=== PATIENT | male | born 1985 | race Caucasian/White ===

== ENCOUNTER → 2016-08-19 | Outpatient (CLI) | payer OTHER ==
[~2016-08-19] MED LIST: ALPR2TAB3 PO; CARI350T20 PO; DIAZ2TAB PO; No home medications; OXCA300T PO; PAME25CA PO; TRAM50TA2 PO; VENL150C43 PO; VENL37CA PO
--- NOTE | 2016-08-19 23:57 | ECWPNPC ---
PATIENT NAME: HEENA KO : 1985 GENDER: MALE VISIT DATE: 08/19/2016 DISCHARGE DATE: 08/19/16 0952 VISIT LOCKED DATE TIME: PHYSICIAN: TIMA ALICIA RESOURCE: TIMA ALICIA REASON FOR APPOINTMENT 1. ABDOMINAL PAIN HISTORY OF PRESENT ILLNESS HISTORY OF PRESENT ILLNESS: PAIN THE PATIENT DESCRIBES THE PAIN... FALL RISK SCREENING: SCREENING :NO FALLS IN THE PAST YEAR TODAY'S VISIT: NOTES: STATUS POST PERMANENT DORSAL COLUMN STIMULATOR FOR PERSISTANT ABDOMENAL /BLADDER AREA PAIN. PLACED 07/13/16. RATES PAIN TODAY 8/10 PARTICULARLY OVER THE SPINE AND ALONG THE STIMULATOR INSERTION SITE DENIES ANY NEW FEVERS OR CHILLS. . IS HAVING DIFFICULTY WITH RIDING IN THE CAR BUT OTHERWISE NO ISSUES WITH THE STIMULATOR. . NOTES GOOD STIIMULATOR COVERAGE FROM MID THORACIC REGION ALL THE WAY TO THE MID THIGH. IS WORKING ON DECREASING PAIN MEDS. WILL BE FOLLOWING UP WITH UROLOGIST AT [facility] IN NEAR FUTURE.. IS WORKING ON BUILDING LOWER EXTREMITY STRENGTH. WILL BE FOLLOWING UP WITH PARTS DEPARTMENT MANAGER. REPORTS HE HIS HUNGRY, FOOD TASTES BETTER AND HE HAS GAINED 10 LBS OVER THE LAST MONTH. CURRENT MEDICATIONS TAKING OXYCODONE-ACETAMINOPHEN 10-325 MG TABLET 1 TABLET NEEDED ORALLY Q6H PRN PAIN MDD4 TAKING SOMA 350 MG TABLET 1 TABLET ORALLY TAKE ONE AT SUPPER TIME AND ONE AT BEDTIME PRN FOR SPASMS AND PAIN MDD=2 TAKING NORTRIPTYLINE HCL 25 MG CAPSULE 1 CAPSULE ORALLY TWICE A DAY TAKING HYDROCODONE-ACETAMINOPHEN 7.5-325 MG TABLET 1 TABLET NEEDED ORALLY EVERY 4 HRS PRN FOR PAIN MDD5 TAKING STOOL SOFTENER 100 MG CAPSULE 1 CAPSULE NEEDED ORALLY BID TAKING VENLAFAXINE HCL 100 MG TABLET 1 AND HALF TAB FOOD ORALLY QD TAKING XANAX 2 MG TABLET 1 TABLET ORALLY TID TAKING OXCARBAZEPINE 300 MG TABLET 1 TAB(S) ORALLY BID TAKING OXYCODONE HCL 10 MG TABLET 1 TABLET ORALLY EVERY 4 HRS PRN FOR PAIN MDD5 TAKING VENLAFAXINE HCL 37.5 MG TABLET 1 TABLET WITH FOOD ORALLY DAILY TAKING VALIUM 2 MG TABLET 1 TABLET NEEDED ORALLY QID NOT-TAKING LINZESS 145 MCG CAPSULE 1 CAPSULE ORALLY ONCE A DAY NOT-TAKING VALIUM 2 MG TABLET 1 TABLET NEEDED ORALLY ONCE A DAY NOT-TAKING NICODERM CQ 14 MG/24HR PATCH 24 HOUR 1 PATCH TO SKIN TRANSDERMAL ONCE A DAY PAST MEDICAL HISTORY PROSTATE ENLARGEMENT,CHRONIC KIDNEY INFECTION, ALLERGIES N.K.D.A. SOCIAL HISTORY TOBACCO USE ARE YOU A:CURRENT SMOKER LEARNING BARRIERS / SPECIAL NEEDS ORIENTED TO PLAN OF CARE: PATIENT, PAIN MANAGEMENT PATIENT, ORIENTED TO PLAN OF CARE: PATIENT, PAIN MANAGEMENT PATIENT. NEW PATIENT PAIN DIARY TODAY'S VISITNOTES FROM 0-10, WHAT LEVEL IS YOUR PAIN TODAY?0 PAIN CLINIC PFS, CLERGY, PUBLIC HEALTH REFERRALS PFS REFERRAL NEEDED?NO CLERGY REFERRAL NEEDED?NO PUBLIC HEALTH REFERRAL NEEDED?NO WAS THE PROVIDER NOTIFIED OF ANY PERTINENT INFO?NO PFS REFERRAL NEEDED?NO CLERGY REFERRAL NEEDED?NO PUBLIC HEALTH REFERRAL NEEDED?NO WAS THE PROVIDER NOTIFIED OF ANY PERTINENT INFO?NO REVIEW OF SYSTEMS CONSTITUTIONAL: ANY CHANGE IN YOUR MEDICAL CONDITION? NO . CHILLS NO . FEVER NO . INFECTION: DO YOU HAVE NEW INFECTIONS? NO . DO YOU HAVE HISTORY OF MRSA? NO . MUSCULOSKELETAL: ANY NEW PATTERNS OF PAIN OR NUMBNESS? NO . GASTROENTEROLOGY: ANY NEW CHANGE IN BOWEL CONTROL? NO . GENITOURINARY: ANY NEW CHANGE IN BLADDER CONTROL? NO - HAS PPERM CATH . IS THERE A CHANCE YOU COULD BE ? NO . HEMATOLOGY/LYMPH: DO YOU TAKE ANY BLOOD THINNERS? (FOR EXAMPLE- COUMADIN, PLAVIX, AGGRENOX, PLATEL, PRADAXA, OR XARELTO) NO . WHEN WAS YOUR LAST DOSE? DATE: TIME: . NEUROLOGY: HAVE YOU FALLEN IN THE PAST 6 MONTHS? NO . ANY NEW EXTREMITY NUMBNESS OR WEAKNESS? NO . CARDIOLOGY: DO YOU HAVE A PACEMAKER OR DEFIBRILLATOR? NO . RESPIRATORY: HAVE YOU BEEN SICK IN THE PAST WEEK? NO . FEVER NO . FLU LIKE SYMPTOMS? NO . COUGH NO . INTEGUMENTARY: DO YOU HAVE ANY RASHES OR OPEN SORES? NO . ALLERGIC/IMMUNO: ARE YOU ALLERGIC TO SHELLFISH OR IV DYE? NO . ANY NEW ALLERGIES? NO . PSYCHIATRIC: DO YOU HAVE THOUGHTS OF HURTING YOURSELF OR SOMEONE ELSE? NO . ARE YOU ABUSED, NEGLECTED, OR IN AN UNSAFE ENVIRONMENT? NO . ENDOCRINOLOGY: ARE YOU DIABETIC? NO . OTHER: DO YOU NEED ANY PRESCRIPTIONS? NO . IF YES, PLEASE LIST: ____ . ANY NEW PROBLEMS WITH YOUR MEDICATIONS? NO . WHEN DID YOU LAST EAT? ____ . WHEN DID YOU LAST DRINK? ____ . WHAT DID YOU LAST DRINK? ____ . NAME OF PERSON DRIVING YOU HOME? ____ . DO YOU HAVE ANY OTHER QUESTIONS OR CONCERNS NO . UROLOGY: GENERAL CONTINES TO HAVE FLANK DISCONFORT FROM DISTENDED KIDNEY AND HAS HX OF KIDNEY STONES . REVIEWED BY: PROVIDER: TIMA CEDILLO . VITAL SIGNS WT 136 LBS, HT 68 IN, BMI 20.68 INDEX, BP 121/73 MM HG, HR 98 /MIN, RR 18 /MIN, TEMP 98 F,2 F, OXYGEN SAT % 100, SAFE IN ENV? (Y/N) YES, REVIEWED BY: KG. EXAMINATION GENERAL EXAMINATION: PSYCH ALERT , ORIENTED X 3 , APPROPRIATE MOOD AND AFFECT , TALKATIVE AND CHEERFUL. LUNGS:CLEAR TO AUSCULTATION BILATERALLY - ABLE TO TAKE DEEP BREATH. NO WHEEZES, RALES OR RHONCHI. HEART:HEART RATE REGULAR. ABDOMEN:ILIOSTOMY RIGHT LOWER QUADRANT. STOMA PINK. URIN CLOUDY. BOWEL SOUND ACTIVE. MINIMAL TENDERNESS OVER LOWER ABDOMEN/SYMPHASIS PUBIS. MUSCULOSKELETAL:TENDER OVER LSA., TRIGGER POINTS:, ELICITED WITH PALPATION OVER LUMBAR PARAVERTEBRAL MUSCLES AND INTO THE SECRUM. RESTRICTION OF ROM IN THIS AREA. INSPECTION OF SURGICAL AREA OVER SPINE AND RIGHT FLANK - INCISIONS CLEAN, PINK, WELL APPROXIMATED. NO ERRYTHEMA, NO DRAINAGE. MUSCLE SPASM PALPATED AROUND DCS GENERATOR RIGHT FLANK. RISES EASILY TO STANDING POSITION. POSTURE STOOPED. USING WALKER FOR BALANCE.. ASSESSMENTS ABDOMINAL PAIN - R10.9 (PRIMARY) NEUROGENIC BLADDER - N31.9 TREATMENT ABDOMINAL PAIN STOP OXYCODONE-ACETAMINOPHEN TABLET, 10-325 MG, 1 TABLET NEEDED, ORALLY, Q6H PRN PAIN MDD4 START PERCOCET TABLET, 7.5-325 MG, 1 TABLET NEEDED, ORALLY, EVERY 6 HRS PRN PAIN MDD=3, 30 DAY(S), 90, REFILLS 0 START LIDOCAINE-PRILOCAINE CREAM, 2.5-2.5 %, DIRECTED, EXTERNALLY, APPLY TO PAIN AREAS OF LOW BACK NEAR INCISIONS Q 6 HRS PRN, 30 DAY(S), 3 TUBE, REFILLS 1 NOTES: KEEP WALKING, BUT PACE SELF.WORK TO DECREASE QUANTITY OF PAIN MED PER DAY. WILL CONTINUE WEAN AT NEXT VISIT. WILL CONTACT [employer] AND HAVE REP COME TO CHECK DCS PROGRAMMING AT NEXT VISIT. PROCEDURE CODES FA211 ESTABILISHED PATIENT [facility] CHARGE FOLLOW UP 3-4 WEEKS ELECTRONICALLY SIGNED BY IDA PARRA ON 08/19/2016 AT 11:48 AM EST DISCLAIMER : THIS IS A VISIT SUMMARY EXTRACTED FROM THE [employer] CHART. IT IS NOT A COPY OF THE [employer] PROGRESS NOTE. KEMI
== END ==
LOC: M PAIN 09:20
PROVIDERS: ATTEND Nurse Practitioner Family
DX: Z09 Encounter for follow-up examination after completed treatment for conditions other than malignant neoplasm (principal); R10.9 Unspecified abdominal pain; N31.9 Neuromuscular dysfunction of bladder, unspecified; N28.9 Disorder of kidney and ureter, unspecified; F17.200 Nicotine dependence, unspecified, uncomplicated; Z79.891 Long term (current) use of opiate analgesic; Z79.899 Other long term (current) drug therapy; Z98.890 Other specified postprocedural states; Z96.9 Presence of functional implant, unspecified

== ENCOUNTER → 2016-09-15 | Outpatient (CLI) | payer OTHER ==
--- NOTE | 2016-10-01 01:49 | ECWPNPC ---
PATIENT NAME: HEENA KO : 1985 GENDER: MALE VISIT DATE: 09/15/2016 DISCHARGE DATE: 09/15/16 0955 VISIT LOCKED DATE TIME: PHYSICIAN: TIMA ALICIA RESOURCE: TIMA ALICIA REASON FOR APPOINTMENT 1. ABDOMINAL PAIN HISTORY OF PRESENT ILLNESS HISTORY OF PRESENT ILLNESS: PAIN THE PATIENT DESCRIBES THE PAIN... FALL RISK SCREENING: SCREENING :NO FALLS IN THE PAST YEAR TODAY'S VISIT: NOTES: RATES PAIN TODAY 8/10 AND MOST OF PAIN IS IN BACK. NOTES GOOD STIMULATION FROM DORSAL COLUMN STIMULATOR TO BLADDER AND ABDOMINAL AREA. NO CHANGE TO THE BACK PAIN WHEN STIM IS TURNED OFF. HAS BEEN ABLE TO WALK BETTER BUT CAN NOT SLEEP DUE TO BACK AREA PAIN.. CURRENT MEDICATIONS TAKING SOMA 350 MG TABLET 1 TABLET ORALLY TAKE ONE AT SUPPER TIME AND ONE AT BEDTIME PRN FOR SPASMS AND PAIN MDD=2 TAKING NORTRIPTYLINE HCL 25 MG CAPSULE 1 CAPSULE ORALLY TWICE A DAY TAKING HYDROCODONE-ACETAMINOPHEN 7.5-325 MG TABLET 1 TABLET NEEDED ORALLY EVERY 4 HRS PRN FOR PAIN MDD5 TAKING STOOL SOFTENER 100 MG CAPSULE 1 CAPSULE NEEDED ORALLY BID TAKING VENLAFAXINE HCL 100 MG TABLET 1 AND HALF TAB FOOD ORALLY QD TAKING XANAX 2 MG TABLET 1 TABLET ORALLY TID TAKING OXCARBAZEPINE 300 MG TABLET 1 TAB(S) ORALLY BID TAKING OXYCODONE HCL 10 MG TABLET 1 TABLET ORALLY EVERY 4 HRS PRN FOR PAIN MDD5 TAKING VENLAFAXINE HCL 37.5 MG TABLET 1 TABLET WITH FOOD ORALLY DAILY TAKING VALIUM 2 MG TABLET 1 TABLET NEEDED ORALLY QID TAKING PERCOCET 7.5-325 MG TABLET 1 TABLET NEEDED ORALLY EVERY 6 HRS PRN PAIN MDD=3 TAKING LIDOCAINE-PRILOCAINE 2.5-2.5 % CREAM DIRECTED EXTERNALLY APPLY TO PAIN AREAS OF LOW BACK NEAR INCISIONS Q 6 HRS PRN NOT-TAKING LINZESS 145 MCG CAPSULE 1 CAPSULE ORALLY ONCE A DAY NOT-TAKING VALIUM 2 MG TABLET 1 TABLET NEEDED ORALLY ONCE A DAY NOT-TAKING NICODERM CQ 14 MG/24HR PATCH 24 HOUR 1 PATCH TO SKIN TRANSDERMAL ONCE A DAY MEDICATION LIST REVIEWED AND RECONCILED WITH THE PATIENT PAST MEDICAL HISTORY PROSTATE ENLARGEMENT,CHRONIC KIDNEY INFECTION, ALLERGIES N.K.D.A. SOCIAL HISTORY GENERAL: TOBACCO USE ARE YOU A:NONSMOKER LEARNING BARRIERS / SPECIAL NEEDS ORIENTED TO PLAN OF CARE: PATIENT, PAIN MANAGEMENT PATIENT, ORIENTED TO PLAN OF CARE: PATIENT, PAIN MANAGEMENT PATIENT. NEW PATIENT PAIN DIARY TODAY'S VISITNOTES FROM 0-10, WHAT LEVEL IS YOUR PAIN TODAY?0 PAIN CLINIC PFS, CLERGY, PUBLIC HEALTH REFERRALS PFS REFERRAL NEEDED?NO CLERGY REFERRAL NEEDED?NO PUBLIC HEALTH REFERRAL NEEDED?NO WAS THE PROVIDER NOTIFIED OF ANY PERTINENT INFO?NO PFS REFERRAL NEEDED?NO CLERGY REFERRAL NEEDED?NO PUBLIC HEALTH REFERRAL NEEDED?NO WAS THE PROVIDER NOTIFIED OF ANY PERTINENT INFO?NO REVIEW OF SYSTEMS CONSTITUTIONAL: ANY CHANGE IN YOUR MEDICAL CONDITION? NO . CHILLS NO . FEVER NO . INFECTION: DO YOU HAVE NEW INFECTIONS? NO . DO YOU HAVE HISTORY OF MRSA? NO . MUSCULOSKELETAL: ANY NEW PATTERNS OF PAIN OR NUMBNESS? NO . GASTROENTEROLOGY: ANY NEW CHANGE IN BOWEL CONTROL? NO . APPETITE CHANGE IMPROVING. DENIES DIARRHEA/CONSTPATION . GENITOURINARY: ANY NEW CHANGE IN BLADDER CONTROL? NO . IS THERE A CHANCE YOU COULD BE ? NO . HEMATOLOGY/LYMPH: DO YOU TAKE ANY BLOOD THINNERS? (FOR EXAMPLE- COUMADIN, PLAVIX, AGGRENOX, PLATEL, PRADAXA, OR XARELTO) NO . WHEN WAS YOUR LAST DOSE? DATE: TIME: . NEUROLOGY: HAVE YOU FALLEN IN THE PAST 6 MONTHS? YES, BEFORE 07/13 NO INJURY . ANY NEW EXTREMITY NUMBNESS OR WEAKNESS? NO . CARDIOLOGY: DO YOU HAVE A PACEMAKER OR DEFIBRILLATOR? NO . RESPIRATORY: HAVE YOU BEEN SICK IN THE PAST WEEK? NO . FEVER NO . FLU LIKE SYMPTOMS? NO . COUGH NO . INTEGUMENTARY: DO YOU HAVE ANY RASHES OR OPEN SORES? NO . ALLERGIC/IMMUNO: ARE YOU ALLERGIC TO SHELLFISH OR IV DYE? NO . ANY NEW ALLERGIES? NO . PSYCHIATRIC: DO YOU HAVE THOUGHTS OF HURTING YOURSELF OR SOMEONE ELSE? NO . ARE YOU ABUSED, NEGLECTED, OR IN AN UNSAFE ENVIRONMENT? NO . ENDOCRINOLOGY: ARE YOU DIABETIC? NO . OTHER: DO YOU NEED ANY PRESCRIPTIONS? NO . IF YES, PLEASE LIST: ____ . ANY NEW PROBLEMS WITH YOUR MEDICATIONS? NO . WHEN DID YOU LAST EAT? ____ . WHEN DID YOU LAST DRINK? ____ . WHAT DID YOU LAST DRINK? ____ . NAME OF PERSON DRIVING YOU HOME? ____ . DO YOU HAVE ANY OTHER QUESTIONS OR CONCERNS FEELS LIKE THE DCS IS STICKING OUT OF HIS BACK. HE CAN NOT LIE ON HIS BACK AT NIGHT TO SLEEP DUE TO THE PAIN. LEADS ARE PROMINENT BOTH SIDE OF BACK AND ARE TENDER TO THE TOUCH. . UROLOGY: GENERAL URETER OSTOMY IN PLACE URINE CLEAR YELLOW IN COLOR . REVIEWED BY: PROVIDER: TIMA CEDILLO . VITAL SIGNS WT 129.2 LBS, HT 68 IN, BMI 19.64 INDEX, BP 130/82 MM HG, HR 93 /MIN, RR 16 /MIN, TEMP 97.3 F, OXYGEN SAT % 99, NA INITIALS TL 0849, REVIEWED BY: ADPT WEIGHED ON SCALE-TL. EXAMINATION GENERAL EXAMINATION: PSYCHALERT , ORIENTED X 3 , APPROPRIATE MOOD AND AFFECT , SMILING. LUNGS:CLEAR TO AUSCULTATION BILATERALLY. HEART:HEART RATE REGULAR. MUSCULOSKELETAL:HYPERSENSATIVE TO LIGHT TOUCH OVER ENTIRE BACK SKIN SURFACE. WELL HEALED SURGICAL INSIONS. NO ERYTHEMA NO OPEN LESIONS. ASSESSMENTS ABDOMINAL PAIN - R10.9 (PRIMARY) NEUROGENIC BLADDER - N31.9 CHRONICALLY ON OPIATE THERAPY - Z79.891 TREATMENT ABDOMINAL PAIN STOP SOMA TABLET, 350 MG, 1 TABLET, ORALLY, TAKE ONE AT SUPPER TIME AND ONE AT BEDTIME PRN FOR SPASMS AND PAIN MDD=2 STOP HYDROCODONE-ACETAMINOPHEN TABLET, 7.5-325 MG, 1 TABLET NEEDED, ORALLY, EVERY 4 HRS PRN FOR PAIN MDD5 STOP OXYCODONE HCL TABLET, 10 MG, 1 TABLET, ORALLY, EVERY 4 HRS PRN FOR PAIN MDD5 STOP PERCOCET TABLET, 7.5-325 MG, 1 TABLET NEEDED, ORALLY, EVERY 6 HRS PRN PAIN MDD=3 START TIZANIDINE HCL TABLET, 2 MG, 1 TABLET NEEDED, ORALLY, THREE TIMES A DAY, 30 DAY(S), 90 TABLET, REFILLS 1 START PERCOCET TABLET, 10-325 MG, 1 TABLET NEEDED, ORALLY, EVERY 6-8 HRS PRN PAIN MDD=3, 30 DAY(S), 90, REFILLS 0 NOTES: CONTINUE LIDOCAINE CREAM NEEDED TO BACK. BRING MEDS TO NEXT VISIT. DISCUSSED WITH PATIENT THAT WE WILL NOT BE USING THE NARCOTICS LONG-TERM. CLINICAL NOTES: ISTOP REGISTRY REVIEWED AND DEMNOSTRATES COMPLLIANCE. . RECENT URINE TOXICOLOGY REVIEWED. NO UNAUTHORIZED MEDICATIONS. NO ILLICIT SUBSTANCES AND PRESCRIBED MEDICATIONS WERE PRESENT. PROCEDURE CODES FA211 ESTABILISHED PATIENT [facility] CHARGE DISPOSITION & COMMUNICATION FOLLOW UP 2 WEEKS ELECTRONICALLY SIGNED BY IDA PARRA ON 09/30/2016 AT 01:25 PM EST DISCLAIMER : THIS IS A VISIT SUMMARY EXTRACTED FROM THE [employer] CHART. IT IS NOT A COPY OF THE [employer] PROGRESS NOTE. KEMI
== END ==
LOC: M PAIN 08:40
PROVIDERS: ATTEND Nurse Practitioner Family
DX: Z09 Encounter for follow-up examination after completed treatment for conditions other than malignant neoplasm (principal); G89.29 Other chronic pain; R10.9 Unspecified abdominal pain; N31.9 Neuromuscular dysfunction of bladder, unspecified; M96.1 Postlaminectomy syndrome, not elsewhere classified; Z79.891 Long term (current) use of opiate analgesic; Z79.899 Other long term (current) drug therapy

== ENCOUNTER → 2016-10-16 | Outpatient (CLI) | payer OTHER ==
--- NOTE | 2016-10-24 00:12 | ECWPNPC ---
PATIENT NAME: HEENA KO : 1985 GENDER: MALE VISIT DATE: 10/16/2016 DISCHARGE DATE: 10/16/16 1315 VISIT LOCKED DATE TIME: PHYSICIAN: TIMA ALICIA RESOURCE: TIMA ALICIA REASON FOR APPOINTMENT 1. ABDOMINAL PAIN HISTORY OF PRESENT ILLNESS HISTORY OF PRESENT ILLNESS: PAIN THE PATIENT DESCRIBES THE PAIN... FALL RISK SCREENING: SCREENING :NO FALLS IN THE PAST YEAR TODAY'S VISIT: NOTES: RATES PAIN TODAY 10. IS HAVING PAIN MUSLES OF THE BACK AND CAN'T TOLERATE ANYTHING OVER THE IMPLANTED GENERATOR. ABDOMENAL PAIN IS MUCH RELIEVED. DCS INSTALLED 07/13/16 AND HAS GOOD COVERAGE. STIM ADJUSTED TODAY BY Amalia SALINAS, [employer] REP. IS VERY PLEASED THAT HE CAN NOW WALK BECAUSE OF HIS PAIN RELIEF. . CURRENT MEDICATIONS TAKING NORTRIPTYLINE HCL 25 MG CAPSULE 1 CAPSULE ORALLY TWICE A DAY TAKING STOOL SOFTENER 100 MG CAPSULE 1 CAPSULE NEEDED ORALLY BID TAKING VENLAFAXINE HCL 100 MG TABLET 1 AND HALF TAB FOOD ORALLY QD TAKING XANAX 2 MG TABLET 1 TABLET ORALLY TID TAKING OXCARBAZEPINE 300 MG TABLET 1 TAB(S) ORALLY BID TAKING VENLAFAXINE HCL 37.5 MG TABLET 1 TABLET WITH FOOD ORALLY DAILY TAKING VALIUM 2 MG TABLET 1 TABLET NEEDED ORALLY QID TAKING LIDOCAINE-PRILOCAINE 2.5-2.5 % CREAM DIRECTED EXTERNALLY APPLY TO PAIN AREAS OF LOW BACK NEAR INCISIONS Q 6 HRS PRN TAKING TIZANIDINE HCL 2 MG TABLET 1 TABLET NEEDED ORALLY THREE TIMES A DAY TAKING PERCOCET 10-325 MG TABLET 1 TABLET NEEDED ORALLY EVERY 6-8 HRS PRN PAIN MDD=3 NOT-TAKING LINZESS 145 MCG CAPSULE 1 CAPSULE ORALLY ONCE A DAY NOT-TAKING VALIUM 2 MG TABLET 1 TABLET NEEDED ORALLY ONCE A DAY NOT-TAKING NICODERM CQ 14 MG/24HR PATCH 24 HOUR 1 PATCH TO SKIN TRANSDERMAL ONCE A DAY MEDICATION LIST REVIEWED AND RECONCILED WITH THE PATIENT PAST MEDICAL HISTORY PROSTATE ENLARGEMENT,CHRONIC KIDNEY INFECTION, ALLERGIES N.K.D.A. SOCIAL HISTORY GENERAL: TOBACCO USE ARE YOU A:CURRENT SMOKER LEARNING BARRIERS / SPECIAL NEEDS ORIENTED TO PLAN OF CARE: PATIENT, PAIN MANAGEMENT PATIENT, ORIENTED TO PLAN OF CARE: PATIENT, PAIN MANAGEMENT PATIENT. NEW PATIENT PAIN DIARY TODAY'S VISITNOTES FROM 0-10, WHAT LEVEL IS YOUR PAIN TODAY?0 PAIN CLINIC PFS, CLERGY, PUBLIC HEALTH REFERRALS PFS REFERRAL NEEDED?NO CLERGY REFERRAL NEEDED?NO PUBLIC HEALTH REFERRAL NEEDED?NO WAS THE PROVIDER NOTIFIED OF ANY PERTINENT INFO?NO PFS REFERRAL NEEDED?NO CLERGY REFERRAL NEEDED?NO PUBLIC HEALTH REFERRAL NEEDED?NO WAS THE PROVIDER NOTIFIED OF ANY PERTINENT INFO?NO REVIEW OF SYSTEMS CONSTITUTIONAL: ANY CHANGE IN YOUR MEDICAL CONDITION? NO . CHILLS NO . FEVER NO . INFECTION: DO YOU HAVE NEW INFECTIONS? NO . DO YOU HAVE HISTORY OF MRSA? NO . MUSCULOSKELETAL: ANY NEW PATTERNS OF PAIN OR NUMBNESS? NO . GASTROENTEROLOGY: ANY NEW CHANGE IN BOWEL CONTROL? NO . GENITOURINARY: ANY NEW CHANGE IN BLADDER CONTROL? NO . IS THERE A CHANCE YOU COULD BE ? NO . HEMATOLOGY/LYMPH: DO YOU TAKE ANY BLOOD THINNERS? (FOR EXAMPLE- COUMADIN, PLAVIX, AGGRENOX, PLATEL, PRADAXA, OR XARELTO) NO . WHEN WAS YOUR LAST DOSE? DATE: TIME: . NEUROLOGY: HAVE YOU FALLEN IN THE PAST 6 MONTHS? YES . ANY NEW EXTREMITY NUMBNESS OR WEAKNESS? NO . CARDIOLOGY: DO YOU HAVE A PACEMAKER OR DEFIBRILLATOR? NO . RESPIRATORY: HAVE YOU BEEN SICK IN THE PAST WEEK? NO . FEVER NO . FLU LIKE SYMPTOMS? NO . COUGH NO . INTEGUMENTARY: DO YOU HAVE ANY RASHES OR OPEN SORES? NO . ALLERGIC/IMMUNO: ARE YOU ALLERGIC TO SHELLFISH OR IV DYE? NO . ANY NEW ALLERGIES? NO . PSYCHIATRIC: DO YOU HAVE THOUGHTS OF HURTING YOURSELF OR SOMEONE ELSE? NO . ARE YOU ABUSED, NEGLECTED, OR IN AN UNSAFE ENVIRONMENT? NO . ENDOCRINOLOGY: ARE YOU DIABETIC? NO . OTHER: DO YOU NEED ANY PRESCRIPTIONS? NO . IF YES, PLEASE LIST: ____ . ANY NEW PROBLEMS WITH YOUR MEDICATIONS? NO . WHEN DID YOU LAST EAT? ____ . WHEN DID YOU LAST DRINK? ____ . WHAT DID YOU LAST DRINK? ____ . NAME OF PERSON DRIVING YOU HOME? ____ . DO YOU HAVE ANY OTHER QUESTIONS OR CONCERNS NO . UROLOGY: GENERAL OSTOMY IN PLACE - WORKING WELL. . REVIEWED BY: PROVIDER: TIMA CEDILLO . VITAL SIGNS WT 129.0 LBS, HT 68 IN, BMI 19.61 INDEX, BP 117/66 MM HG, HR 93 /MIN, RR 16 /MIN, TEMP 98.2 F, OXYGEN SAT % 98, NA INITIALS TL 1220, REVIEWED BY: CHIQUITA. EXAMINATION GENERAL EXAMINATION: PSYCHALERT , ORIENTED X 3 , APPROPRIATE MOOD AND AFFECT , SMILING. LUNGS:CLEAR TO AUSCULTATION BILATERALLY. HEART:HEART RATE REGULAR. MUSCULOSKELETAL:HYPERSENSATIVE TO LIGHT TOUCH OVER ENTIRE BACK SKIN SURFACE. WELL HEALED SURGICAL INSIONS. NO ERYTHEMA NO OPEN LESIONS, TRIGGER POINTS AND TIGHT FIBROUS BANDS IDENTIFIED OVER LUMBAR AND LOW THORACIC PARAVERTEBRAL MUSCLES. . ASSESSMENTS ABDOMINAL PAIN - R10.9 (PRIMARY) NEUROGENIC BLADDER - N31.9 CHRONICALLY ON OPIATE THERAPY - Z79.891 MYALGIA - M79.1 TREATMENT ABDOMINAL PAIN REFILL TIZANIDINE HCL TABLET, 4 MG, 1 TABLET NEEDED, ORALLY, THREE TIMES A DAY, 30 DAY(S), 90 TABLET, REFILLS 1 TRIGGER POINT 3 + TIMA BECKER 10/16/2016 12:59:53 PM > SHOULDERS AND UPPER BACK NOTES: TRIGGER POINT INJECTION: YOUR EXPERIENCE MATERIAL WAS PRINTED. PROCEDURE CODES FA211 ESTABILISHED PATIENT [facility] CHARGE DISPOSITION & COMMUNICATION FOLLOW UP AFTER INJECTION (REASON: CHECK AUTH FOR TPI) ELECTRONICALLY SIGNED BY IDA PARRA ON 10/23/2016 AT 09:08 AM EDT DISCLAIMER : THIS IS A VISIT SUMMARY EXTRACTED FROM THE [employer] CHART. IT IS NOT A COPY OF THE [employer] PROGRESS NOTE. KEMI
== END ==
LOC: M PAIN 11:40
PROVIDERS: ATTEND Nurse Practitioner Family
DX: Z09 Encounter for follow-up examination after completed treatment for conditions other than malignant neoplasm (principal); G89.29 Other chronic pain; R10.9 Unspecified abdominal pain; N31.9 Neuromuscular dysfunction of bladder, unspecified; M79.1 Myalgia; F17.200 Nicotine dependence, unspecified, uncomplicated; Z79.891 Long term (current) use of opiate analgesic; Z79.899 Other long term (current) drug therapy

== ENCOUNTER → 2016-11-10 | Outpatient (CLI) | payer OTHER ==
[~2016-11-10] MED LIST changes: +BUPIVACAINE HCL 0.25% 10 ML VIAL As Ordered ONE; +BUPIVACAINE HCL 0.25% 30 ML VIAL As Ordered ONE; +TRIAMCINOLONE ACETONIDE SUSP 40 MG/ML VIAL (J3301) As Ordered ONE; +diazePAM 5 MG TAB As Ordered ONE; +oxyCODONE 5MG TAB As Ordered ONE
--- NOTE | 2016-11-15 23:36 | ECWPNPC ---
PATIENT NAME: HEENA KO : 1985 GENDER: MALE VISIT DATE: 11/10/2016 DISCHARGE DATE: 11/10/16 1635 VISIT LOCKED DATE TIME: PHYSICIAN: MABLE HORTON RESOURCE: MABLE HORTON REASON FOR APPOINTMENT 1. TPI HISTORY OF PRESENT ILLNESS HISTORY OF PRESENT ILLNESS: PAIN THE PATIENT DESCRIBES THE PAIN... FALL RISK SCREENING: SCREENING :NO FALLS IN THE PAST YEAR CURRENT MEDICATIONS TAKING NORTRIPTYLINE HCL 25 MG CAPSULE 1 CAPSULE ORALLY TWICE A DAY, NOTES: 11-10-16799 TAKING STOOL SOFTENER 100 MG CAPSULE 1 CAPSULE NEEDED ORALLY BID, NOTES: 11-10-16799 TAKING VENLAFAXINE HCL 100 MG TABLET 1 AND HALF TAB FOOD ORALLY QD, NOTES: 11-10-16799 TAKING XANAX 2 MG TABLET 1 TABLET ORALLY TID, NOTES: 11-10-16799 TAKING OXCARBAZEPINE 300 MG TABLET 1 TAB(S) ORALLY BID, NOTES: 11-10-16799 TAKING VENLAFAXINE HCL 37.5 MG TABLET 1 TABLET WITH FOOD ORALLY DAILY, NOTES: 11-10-16799 TAKING VALIUM 2 MG TABLET 1 TABLET NEEDED ORALLY QID, NOTES: 11-10-16799 TAKING LIDOCAINE-PRILOCAINE 2.5-2.5 % CREAM DIRECTED EXTERNALLY APPLY TO PAIN AREAS OF LOW BACK NEAR INCISIONS Q 6 HRS PRN, NOTES: 11-09-16 TAKING PERCOCET 10-325 MG TABLET 1 TABLET NEEDED ORALLY EVERY 6-8 HRS PRN PAIN MDD=3, NOTES: 11-10-16799 TAKING TIZANIDINE HCL 4 MG TABLET 1 TABLET NEEDED ORALLY THREE TIMES A DAY, NOTES: 11-10-16799 DISCONTINUED LINZESS 145 MCG CAPSULE 1 CAPSULE ORALLY ONCE A DAY DISCONTINUED VALIUM 2 MG TABLET 1 TABLET NEEDED ORALLY ONCE A DAY DISCONTINUED NICODERM CQ 14 MG/24HR PATCH 24 HOUR 1 PATCH TO SKIN TRANSDERMAL ONCE A DAY MEDICATION LIST REVIEWED AND RECONCILED WITH THE PATIENT PAST MEDICAL HISTORY PROSTATE ENLARGEMENT CHRONIC KIDNEY INFECTION GASTROPARESIS ALLERGIES N.K.D.A. SOCIAL HISTORY GENERAL: PAIN CLINIC PFS, CLERGY, PUBLIC HEALTH REFERRALS CLERGY REFERRAL NEEDED?NO WAS THE PROVIDER NOTIFIED OF ANY PERTINENT INFO?NO PFS REFERRAL NEEDED?NO PUBLIC HEALTH REFERRAL NEEDED?NO PATIENT: ____. REVIEW OF SYSTEMS CONSTITUTIONAL: ANY CHANGE IN YOUR MEDICAL CONDITION? NO . CHILLS NO . FEVER NO . INFECTION: DO YOU HAVE NEW INFECTIONS? NO . DO YOU HAVE HISTORY OF MRSA? NO . MUSCULOSKELETAL: ANY NEW PATTERNS OF PAIN OR NUMBNESS? NO . GASTROENTEROLOGY: ANY NEW CHANGE IN BOWEL CONTROL? NO . GENITOURINARY: ANY NEW CHANGE IN BLADDER CONTROL? NO . IS THERE A CHANCE YOU COULD BE ? NO . HEMATOLOGY/LYMPH: DO YOU TAKE ANY BLOOD THINNERS? (FOR EXAMPLE- COUMADIN, PLAVIX, AGGRENOX, PLATEL, PRADAXA, OR XARELTO) NO . WHEN WAS YOUR LAST DOSE? DATE: TIME: . NEUROLOGY: HAVE YOU FALLEN IN THE PAST 6 MONTHS? YES . ANY NEW EXTREMITY NUMBNESS OR WEAKNESS? NO . CARDIOLOGY: DO YOU HAVE A PACEMAKER OR DEFIBRILLATOR? NO . RESPIRATORY: HAVE YOU BEEN SICK IN THE PAST WEEK? NO . FEVER NO . FLU LIKE SYMPTOMS? NO . COUGH NO . INTEGUMENTARY: DO YOU HAVE ANY RASHES OR OPEN SORES? NO . ALLERGIC/IMMUNO: ARE YOU ALLERGIC TO SHELLFISH OR IV DYE? NO . ANY NEW ALLERGIES? NO . PSYCHIATRIC: DO YOU HAVE THOUGHTS OF HURTING YOURSELF OR SOMEONE ELSE? NO . ARE YOU ABUSED, NEGLECTED, OR IN AN UNSAFE ENVIRONMENT? NO . ENDOCRINOLOGY: ARE YOU DIABETIC? NO . OTHER: DO YOU NEED ANY PRESCRIPTIONS? NO . IF YES, PLEASE LIST: ____ . ANY NEW PROBLEMS WITH YOUR MEDICATIONS? NO . WHEN DID YOU LAST EAT? [phone] . WHEN DID YOU LAST DRINK? 11-10-16 2PM . WHAT DID YOU LAST DRINK? WATER . NAME OF PERSON DRIVING YOU HOME? BERNICE RIOS . DO YOU HAVE ANY OTHER QUESTIONS OR CONCERNS NO . REVIEWED BY: PROVIDER: . VITAL SIGNS WT 137 LBS, HT 68 IN, BMI 20.83 INDEX, BP 124/72 MM HG, HR 100 /MIN, RR 16 /MIN, TEMP 99.8 F, OXYGEN SAT % 97%, NA INITIALS [id number], REVIEWED BY: CM. ASSESSMENTS MYALGIA - M79.1 (PRIMARY) PROCEDURES PN TRIGGER POINT INJECTION WITH STEROIDS PRE PROCEDURE DIAGNOSIS 1. MYALGIA 2. PAIN AT BILATERAL LOWER BACK AREA POST PROCEDURE DIAGNOSIS 1. MYALGIA 2. 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 MABLE HORTON [employer] WORK[employer] NONE ANESTHESIA LOCAL PRE PROCEDURE NOTE THE PATIENT HAS A HISTORY OF CHRONIC PAIN AT THE RIGHT AND LEFT LOWER BACK AREA. I EVALUATE THE PATIENT AND REVIEWED THE CHART. THERE IS EVIDENCE OF BANDS OF TISSUE WITH RESTRICTION OF MOVEMENT AND PRESENCE OF TRIGGER POINT AT THE AFFECTED AREA. I WENT OVER THE RISKS, ALTERNATIVES, AND BENEFITS ASSOCIATED WITH THIS PROCEDURE. THE PATIENT WOULD LIKE TO PROCEED AND GIVE CONSENT TO PERFORMED THE PROCEDURE. THE PATIENT DENIES UNEXPLAINABLE WEIGHT LOSS, FEVER, CHILLS, OR NEW CHANGES IN URINARY OR BOWEL CONTROL DESCRIPTION OF PROCEDURE THE PATIENT WAS BROUGHT TO THE PROCEDURE ROOM AND PLACED IN THE SITTING POSITION. THE AREA WAS CLEANED WITH ALCOHOL. THE PROCEDURE WAS DONE USING ASEPTIC STERILE TECHNIQUE. I CHECKED LATERALITY AND THE LEVEL WHERE THE PROCEDURE WAS GOING TO BE PERFORMED WITH THE PATIENT AND THE SUPPORTING STAFF AT THE MOMENT OF THE TIME OUT IN THE PROCEDURE ROOM. USING A 25-GAUGE NEEDLE, TRIGGER POINTS WERE INJECTED AT THE RIGHT AND LEFT LOWER BACK AREA WITH A TOTAL OF 40 ML OF BUPIVACAINE 0.25% AND KENALOG 40 MG. THERE WAS NO EVIDENCE OF BLOOD, PARESTHESIA OR CEREBROSPINAL FLUID DURING THE PROCEDURE. THE PATIENT WAS SENT TO THE RECOVERY ROOM. THE PATIENT WAS MOVING THE EXTREMITIES AND DOING WELL. THERE WAS NO COMPLICATION DURING THE PROCEDURE POST PROCEDURE NOTE THE PATIENT WILL BE SEEN IN A FOLLOW UP IN THE NEXT FEW WEEKS. INSTRUCTIONS WERE GIVEN, QUESTIONS WERE ANSWERED, AND THE PATIENT EXPRESSED UNDERSTANDING AND AGREES WITH THE PLAN. I, NICOLE GAGNON, DOCUMENTED THE ABOVE INFORMATION ACTING A SCRIBE FOR DR. HORTON. I HAVE REVIEWED THE ABOVE DOCUMENT, WRITTEN BY NICOLE SANCHEZ AND I VERIFY THAT IT IS ACCURATE. PROCEDURE CODES 20724 INJECT TRIGGER POINTS 3/> DISPOSITION & COMMUNICATION FOLLOW UP 3 WEEKS ELECTRONICALLY SIGNED BY MABLE HORTON MD ON 11/15/2016 AT 09:34 PM EDT DISCLAIMER : THIS IS A VISIT SUMMARY EXTRACTED FROM THE [employer] CHART. IT IS NOT A COPY OF THE [employer] PROGRESS NOTE. [facility]
== END ==
LOC: M PAIN 14:40
PROVIDERS: ATTEND Anesthesiology
DX: G89.29 Other chronic pain (principal); M79.1 Myalgia; M54.5 Low back pain; N31.9 Neuromuscular dysfunction of bladder, unspecified; Z79.899 Other long term (current) drug therapy
CPT/HCPCS: 20552; J3301

== ENCOUNTER → 2016-11-24 | Outpatient (CLI) | payer OTHER ==
[~2016-11-24] MED LIST changes: -BUPIVACAINE HCL 0.25% 10 ML VIAL As Ordered ONE; -BUPIVACAINE HCL 0.25% 30 ML VIAL As Ordered ONE; -TRIAMCINOLONE ACETONIDE SUSP 40 MG/ML VIAL (J3301) As Ordered ONE; -diazePAM 5 MG TAB As Ordered ONE; -oxyCODONE 5MG TAB As Ordered ONE
--- NOTE | 2016-12-09 00:59 | ECWPNPC ---
PATIENT NAME: HEENA KO : 1985 GENDER: MALE VISIT DATE: 11/24/2016 DISCHARGE DATE: 11/24/16 0000 VISIT LOCKED DATE TIME: PHYSICIAN: TIMA ALICIA RESOURCE: TIMA ALICIA HISTORY OF PRESENT ILLNESS HISTORY OF PRESENT ILLNESS: PAIN THE PATIENT DESCRIBES THE PAIN... FALL RISK SCREENING: SCREENING :NO FALLS IN THE PAST YEAR TODAY'S VISIT: NOTES: REPORTS STOPPED RECEIVING PAIN CONTROL FROM THE STIMULATOR RIGHT AFTER TPI WAS DONE. RTC NEXT DAY - [facility] THAT DR HORTON WAS CALLING THEM TO SEE HIM - THEY DECLINED, CAME BACK AND DR HORTON COULDN'T SEE HIM. STATES HAD SIGNIFICANT BRUISING ACROSS THE BACK FROM TPI. STATES HAD NAUSEA AND VOMITING X 1 WEEK AFTER TPI. STATES FEELS STIMULATOR INTO LEGS BUT NO PAIN RELIEF. COULD NOT GET OUT OF BED THIS AM BECAUSE OF SEVERE ABDOMENAL PAIN. NO ISSUES WITH BOWELS. NO UTI. TO [facility] 11/17/16 - NO INFECTION, NO RENAL ISSUES. PERCOCET HELPS PAIN AND HAS 5 FROM PREVIOUS SCRIPT BUT STATES THIS WILL BE GONE EARLY. . CURRENT MEDICATIONS TAKING NORTRIPTYLINE HCL 25 MG CAPSULE 1 CAPSULE ORALLY TWICE A DAY TAKING STOOL SOFTENER 100 MG CAPSULE 1 CAPSULE NEEDED ORALLY BID TAKING VENLAFAXINE HCL 100 MG TABLET 1 AND HALF TAB FOOD ORALLY QD TAKING XANAX 2 MG TABLET 1 TABLET ORALLY TID TAKING OXCARBAZEPINE 300 MG TABLET 1 TAB(S) ORALLY BID TAKING VENLAFAXINE HCL 37.5 MG TABLET 1 TABLET WITH FOOD ORALLY DAILY TAKING VALIUM 2 MG TABLET 1 TABLET NEEDED ORALLY QID TAKING TIZANIDINE HCL 4 MG TABLET 1 TABLET NEEDED ORALLY THREE TIMES A DAY TAKING PERCOCET 10-325 MG TABLET 1 TABLET NEEDED ORALLY EVERY 6 HRS PRN PAIN MDD=6 TAKING LIDOCAINE-PRILOCAINE 2.5-2.5 % CREAM DIRECTED EXTERNALLY APPLY TO PAIN AREAS OF LOW BACK NEAR INCISIONS Q 6 HRS PRN MEDICATION LIST REVIEWED AND RECONCILED WITH THE PATIENT PAST MEDICAL HISTORY PROSTATE ENLARGEMENT CHRONIC KIDNEY INFECTION GASTROPARESIS ALLERGIES STEROIDS - TPI: NAUSEA/VOMITING: SIDE EFFECTS SOCIAL HISTORY GENERAL: PAIN CLINIC PFS, CLERGY, PUBLIC HEALTH REFERRALS CLERGY REFERRAL NEEDED?NO WAS THE PROVIDER NOTIFIED OF ANY PERTINENT INFO?NO PFS REFERRAL NEEDED?NO PUBLIC HEALTH REFERRAL NEEDED?NO PATIENT: ____. REVIEW OF SYSTEMS CONSTITUTIONAL: ANY CHANGE IN YOUR MEDICAL CONDITION? NO . CHILLS NO . FEVER NO . INFECTION: DO YOU HAVE NEW INFECTIONS? NO . DO YOU HAVE HISTORY OF MRSA? NO . MUSCULOSKELETAL: ANY NEW PATTERNS OF PAIN OR NUMBNESS? NO . GASTROENTEROLOGY: ANY NEW CHANGE IN BOWEL CONTROL? NO . GENITOURINARY: ANY NEW CHANGE IN BLADDER CONTROL? NO . IS THERE A CHANCE YOU COULD BE ? NO . HEMATOLOGY/LYMPH: DO YOU TAKE ANY BLOOD THINNERS? (FOR EXAMPLE- COUMADIN, PLAVIX, AGGRENOX, PLATEL, PRADAXA, OR XARELTO) NO . WHEN WAS YOUR LAST DOSE? DATE: TIME: . NEUROLOGY: HAVE YOU FALLEN IN THE PAST 6 MONTHS? NO . ANY NEW EXTREMITY NUMBNESS OR WEAKNESS? NO . CARDIOLOGY: DO YOU HAVE A PACEMAKER OR DEFIBRILLATOR? NO . RESPIRATORY: HAVE YOU BEEN SICK IN THE PAST WEEK? NO . FEVER NO . FLU LIKE SYMPTOMS? NO . COUGH NO . INTEGUMENTARY: DO YOU HAVE ANY RASHES OR OPEN SORES? NO . ALLERGIC/IMMUNO: ARE YOU ALLERGIC TO SHELLFISH OR IV DYE? NO . ANY NEW ALLERGIES? NO . PSYCHIATRIC: DO YOU HAVE THOUGHTS OF HURTING YOURSELF OR SOMEONE ELSE? NO . ARE YOU ABUSED, NEGLECTED, OR IN AN UNSAFE ENVIRONMENT? NO . ENDOCRINOLOGY: ARE YOU DIABETIC? NO . OTHER: DO YOU NEED ANY PRESCRIPTIONS? NO . IF YES, PLEASE LIST: ____ . ANY NEW PROBLEMS WITH YOUR MEDICATIONS? NO . WHEN DID YOU LAST EAT? ____ . WHEN DID YOU LAST DRINK? ____ . WHAT DID YOU LAST DRINK? ____ . NAME OF PERSON DRIVING YOU HOME? ____ . DO YOU HAVE ANY OTHER QUESTIONS OR CONCERNS NO . UROLOGY: GENERAL OSTOMY WORKING WELL. . REVIEWED BY: PROVIDER: TIMA CEDILLO . VITAL SIGNS WT 137 LBS, HT 68 IN, BMI 20.83 INDEX, BP 117/75 MM HG, HR 88 /MIN, RR 16 /MIN, TEMP 99.1 F, OXYGEN SAT % 97%, NA INITIALS SC 13:46. EXAMINATION GENERAL EXAMINATION: GENERAL APPEARANCE:USING POWER CHAIR FOR MOBILITY TODAY. PSYCHALERT , ORIENTED X 3 , IRRITABLE, HARD TO KEEP ON SUBJECT. LUNGS:CLEAR TO AUSCULTATION BILATERALLY. HEART:HEART RATE REGULAR, RAPID. BACK:DORSAL COLUMN INSICIONS OVER UPPER LUMBAR SPINE AND ACROSS ROGHT FLANK FOR GENERATOR CLEAN DRY WELL HEALED. NO EXUDATE, NO ERRYTHEMA. MUSCULOSKELETAL:VERT THIN. HYPERSENSATIVITY TO LIGHT TOUGHT BUT NO FIBROUS BANDS IDENTIFIED OVER THORACIC AND LUMBAR SPINE OR ACROSS THE LUMOSACRAL AXIS. ASSESSMENTS ABDOMINAL PAIN - R10.9 (PRIMARY) MYALGIA - M79.1 CHRONIC PRESCRIPTION OPIATE USE - Z79.891 TREATMENT ABDOMINAL PAIN REFILL PERCOCET TABLET, 10-325 MG, 1 TABLET NEEDED, ORALLY, EVERY 4 HRS PRN PAIN MDD=6, 30 DAY(S), 150, REFILLS 0 NOTES: REQUEST FLOURO SHOT OF THOARCIC/LUMBAR SPINE FOR PLACEMENT OF DCS LEADS . IRWIN SALINAS TO SEE TO EVAL OF STIM PROGRAMING UTOX AND NARCOTIC AGREEMENT TODAY, RISKS AND BENEFITS OF NARCOTIC/OPIOD MEDICATIONS WERE REVIEWED WITH PATIENT - THIS INCLUDES BUT IS NOT LIMITED TO RISK OF DEPENDANCE/DEVELOPMENT OF ADDICTION, MOOD DISTURBANCE AND DEPRESSION, OSTEOPOROSIS, HORMONAL AND LABIDAL CHANGES, RESPIRATORY DEPRESSION AND . PATIENT IS ADVISED NOT TO DRIVE WHILE ON THESE MEDICATIONS, REVIEWED WITH PATIENT THE POTENTIAL RISK OF INCREASED SEDATION, RESPIRATORY SUPPRESSION AND WITH THE COMBINATION OF BENZODIAZAPINE AND OPIOD MEDICATIONS. PATIENT STATES HE UNDERSTANDS THIS RISK AND WISHES TO CONTINUE WITH THERAPY. BRICE WILL CONTACT ABOUT FLOURO SHOT. CLINICAL NOTES: UTOX AND UPDATE NARCOTIC AGREEMENT TODAY. CASE REVIEWED WITH DR HORTON. PROCEDURE CODES FA211 ESTABILISHED PATIENT [facility] CHARGE DISPOSITION & COMMUNICATION FOLLOW UP 26-28 DAYS (REASON: CHECK AUTH FOR FLOURO SHOT /BRICE) ELECTRONICALLY SIGNED BY IDA PARRA ON 12/08/2016 AT 08:38 AM EDT DISCLAIMER : THIS IS A VISIT SUMMARY EXTRACTED FROM THE [employer] CHART. IT IS NOT A COPY OF THE [employer] PROGRESS NOTE. MTDD
== END ==
LOC: M PAIN 13:20
PROVIDERS: ATTEND Nurse Practitioner Family
DX: R10.9 Unspecified abdominal pain (principal); M79.1 Myalgia; Z88.8 Allergy status to other drugs, medicaments and biological substances; Z79.899 Other long term (current) drug therapy; Z96.9 Presence of functional implant, unspecified

== ENCOUNTER → 2016-12-30 | Outpatient (CLI) | payer OTHER ==
--- NOTE | 2017-01-23 00:35 | ECWPNPC ---
PATIENT NAME: HEENA KO : 1985 GENDER: MALE VISIT DATE: 12/30/2016 DISCHARGE DATE: 12/30/16 0000 VISIT LOCKED DATE TIME: PHYSICIAN: TIMA ALICIA RESOURCE: TIMA ALICIA REASON FOR APPOINTMENT 1. ABDOMINAL HISTORY OF PRESENT ILLNESS HISTORY OF PRESENT ILLNESS: PAIN THE PATIENT DESCRIBES THE PAIN... FALL RISK SCREENING: SCREENING :NO FALLS IN THE PAST YEAR TODAY'S VISIT: NOTES: IS ACCOMPANIED TODAY BY , BERNICE. RATES PAIN LEVEL TODAY 7/10. DESCRIBES PAIN ACHING, SHARP, STABBING, THROBBING AND SORE. STATES HAS HAD ELECTRIC SHOCK LIKE PAIN WHICH HAS CAUSED HIM TO FALL. HAS NOT HEARD FROM US REGARDING DOING FLUOR SHOT FOR LEAD PLACEMENT. . DID NOT NEED ANY ALTERATIONS IN PROGRAMING SYSTEM IS COVERING THE PAIN AREAS AT THIS TIME - BATTERY FEELS LIKE ITS MOVING IN THE POCKET. THIS FEELS LIKE A CONSTANT SENSATION WITH A JOLTING SENSATION WHERE BATTERY IS LOCATED, WITH OUT RADIATION. HAS NEEDED TO LAY ON SIDE TO SLEEP IS STILL HAVING DISCOMFORT AT ANCHORS OVER SPINE. . CURRENT MEDICATIONS TAKING STOOL SOFTENER 100 MG CAPSULE 1 CAPSULE NEEDED ORALLY BID TAKING VENLAFAXINE HCL 100 MG TABLET 1 TAB FOOD ORALLY QD TAKING OXCARBAZEPINE 300 MG TABLET 1 TAB(S) ORALLY BID TAKING VENLAFAXINE HCL 37.5 MG TABLET 1 TABLET WITH FOOD ORALLY DAILY TAKING VALIUM 2 MG TABLET 1 TABLET NEEDED ORALLY QID TAKING ARIPIPRAZOLE 5 MG TABLET 1 TABLET ORALLY ONCE A DAY TAKING CEPHALEXIN 500 MG CAPSULE 1 CAPSULE ORALLY EVERY 12 HRS TAKING ZYRTEC ALLERGY 10 MG TABLET 1 TABLET ORALLY ONCE A DAY NOT-TAKING NORTRIPTYLINE HCL 25 MG CAPSULE 1 CAPSULE ORALLY TWICE A DAY NOT-TAKING TIZANIDINE HCL 4 MG TABLET 1 TABLET NEEDED ORALLY THREE TIMES A DAY NOT-TAKING LIDOCAINE-PRILOCAINE 2.5-2.5 % CREAM DIRECTED EXTERNALLY APPLY TO PAIN AREAS OF LOW BACK NEAR INCISIONS Q 6 HRS PRN DISCONTINUED XANAX 2 MG TABLET 1 TABLET ORALLY TID DISCONTINUED PERCOCET 10-325 MG TABLET 1 TABLET NEEDED ORALLY EVERY 4 HRS PRN PAIN MDD=6 MEDICATION LIST REVIEWED AND RECONCILED WITH THE PATIENT PAST MEDICAL HISTORY PROSTATE ENLARGEMENT CHRONIC KIDNEY INFECTION GASTROPARESIS ALLERGIES STEROIDS - TPI: NAUSEA/VOMITING: SIDE EFFECTS REVIEW OF SYSTEMS CONSTITUTIONAL: ANY CHANGE IN YOUR MEDICAL CONDITION? NO . CHILLS NO . FEVER NO . INFECTION: DO YOU HAVE NEW INFECTIONS? NO . DO YOU HAVE HISTORY OF MRSA? NO . MUSCULOSKELETAL: ANY NEW PATTERNS OF PAIN OR NUMBNESS? NO . GASTROENTEROLOGY: ANY NEW CHANGE IN BOWEL CONTROL? NO . GENITOURINARY: ANY NEW CHANGE IN BLADDER CONTROL? NO . IS THERE A CHANCE YOU COULD BE ? NO . HEMATOLOGY/LYMPH: DO YOU TAKE ANY BLOOD THINNERS? (FOR EXAMPLE- COUMADIN, PLAVIX, AGGRENOX, PLATEL, PRADAXA, OR XARELTO) NO . WHEN WAS YOUR LAST DOSE? DATE: TIME: . NEUROLOGY: HAVE YOU FALLEN IN THE PAST 6 MONTHS? YES PT REPORTS TWO FALLS IN PAST WEEK, STATES HE GETS A SHARP PAIN (FEELS LIKE AN ELECTRIC SHOCK PER PT) IN RIGHT SIDE WHERE DCS BATTERY IS, HE LOSES HIS BALANCE AND FALLS. NO INJURY FROM FALLS PER PT. . ANY NEW EXTREMITY NUMBNESS OR WEAKNESS? NO . CARDIOLOGY: DO YOU HAVE A PACEMAKER OR DEFIBRILLATOR? NO . RESPIRATORY: HAVE YOU BEEN SICK IN THE PAST WEEK? YES PT REPORTS HE HAS A SINUS INFECTION, ON ANTIBIOTICS. . FEVER NO . FLU LIKE SYMPTOMS? NO . COUGH NO . INTEGUMENTARY: DO YOU HAVE ANY RASHES OR OPEN SORES? NO . ALLERGIC/IMMUNO: ARE YOU ALLERGIC TO SHELLFISH OR IV DYE? NO . ANY NEW ALLERGIES? NO . PSYCHIATRIC: DO YOU HAVE THOUGHTS OF HURTING YOURSELF OR SOMEONE ELSE? NO . ARE YOU ABUSED, NEGLECTED, OR IN AN UNSAFE ENVIRONMENT? NO . ENDOCRINOLOGY: ARE YOU DIABETIC? NO . OTHER: DO YOU NEED ANY PRESCRIPTIONS? NO . IF YES, PLEASE LIST: ____ . ANY NEW PROBLEMS WITH YOUR MEDICATIONS? NO . WHEN DID YOU LAST EAT? ____ . WHEN DID YOU LAST DRINK? ____ . WHAT DID YOU LAST DRINK? ____ . NAME OF PERSON DRIVING YOU HOME? ____ . DO YOU HAVE ANY OTHER QUESTIONS OR CONCERNS NO . PSYCHOLOGY: ANXIETY IMPROVING, BUT STILL WITH SIGNIFICANT CONCERNS. WAS USING LOCAL NON MEDICAL MARIJUANA - BELIEVES THIS WAS LACED WITH SOMETHING WHICH PRODUCED MARKED ANXIETY. HAS STOPPED THIS AND ANXIETY/FUNCTIONAL ABILITY HAS IMPROVED . REVIEWED BY: PROVIDER: . VITAL SIGNS WT 135 LBS, HT 68 IN, BMI 20.52 INDEX, BP 140/79 MM HG, HR 94 /MIN, RR 16 /MIN, TEMP 99.6 F, OXYGEN SAT % 99%, SAFE IN ENV? (Y/N) YES, NA INITIALS SC 10:22, REVIEWED BY: APRIL. EXAMINATION GENERAL EXAMINATION: GENERAL APPEARANCE:THIN, COLOR PALE. USING MOBILITY CHAIR. PSYCHALERT , ORIENTED X 3 . LUNGS:CLEAR TO AUSCULTATION BILATERALLY. HEART:HEART RATE REGULAR, RAPID. ABDOMEN:SOFT, BOWEL SOUNDS PRESENT. UROSTOMY FUNCTIONAL. MUSCULOSKELETAL:TENDER OVER ANCHORS ALONG SPINAL CANAL. EXQUISITE TENDERNESS OVER PROX RIGHT GENERATOR AND INCREASED PAIN WITH MOVEMENT OF GENERATOR.. EXTREMITIES:NO EDEMA. ASSESSMENTS ABDOMINAL PAIN - R10.9 (PRIMARY) MYALGIA - M79.1 TREATMENT ABDOMINAL PAIN START GABAPENTIN CAPSULE, 300 MG, 1 CAPSULE, ORALLY, THREE TIMES A DAY, 30 DAY(S), 90 START LIDOCAINE OINTMENT, 5 %, 1 APPLICATION TO AFFECTED AREA NEEDED, EXTERNALLY, THREE TIMES A DAY TO PAINFUL AREA LOW BACK, 30 DAY(S), 2, REFILLS 1 NOTES: WILL SCHEDULE FOR FLURO SHOT TO IMAGE DCS GENERATOR AND LEADS. WILL REFER TO DR AGUILAR FOR DISCUSSION OF MEDICAL MARIJUANA. CLINICAL NOTES: ISTOP REGISTRY REVIEWED . RECENT URINE TOXICOLOGY REVIEWED. UNAUTHORIZED MEDICATIONS NOTED AND DISCUSSED WITH PATIENT. REVIEWED WITH PATIENT AND SPOUSE THAT WE WILL NO LONGER BE WRITING SCRIPTS FOR ANY OPIODS BUT MAY REVISIT THIS IN TIME. WILL MAKE REFERRAL TO DR AGUILAR FOR SAFER OPTIONS REGARDING MARIJUANA USE. PROCEDURE CODES FA211 ESTABILISHED PATIENT [facility] CHARGE DISPOSITION & COMMUNICATION FOLLOW UP SCHEDULE FOR DR HORTON - FLUORO SHOT DCS. ELECTRONICALLY SIGNED BY IDA PARRA ON 01/22/2017 AT 09:35 AM EDT DISCLAIMER : THIS IS A VISIT SUMMARY EXTRACTED FROM THE [employer] CHART. IT IS NOT A COPY OF THE [employer] PROGRESS NOTE. KEMI
== END ==
LOC: M PAIN 10:00
PROVIDERS: ATTEND Nurse Practitioner Family
DX: G89.29 Other chronic pain (principal); R10.9 Unspecified abdominal pain; M79.1 Myalgia; N31.9 Neuromuscular dysfunction of bladder, unspecified; Z88.8 Allergy status to other drugs, medicaments and biological substances; Z79.899 Other long term (current) drug therapy

== ENCOUNTER → 2017-01-19 | Outpatient (CLI) | payer OTHER ==
--- NOTE | 2017-01-29 23:45 | ECWPNPC ---
PATIENT NAME: HEENA KO : 1985 GENDER: MALE VISIT DATE: 01/19/2017 DISCHARGE DATE: 01/19/17 1008 VISIT LOCKED DATE TIME: PHYSICIAN: MABLE HORTON RESOURCE: MABLE HORTON REASON FOR APPOINTMENT 1. FLUORO SHOT DCS. HISTORY OF PRESENT ILLNESS HISTORY OF PRESENT ILLNESS: PAIN THE PATIENT DESCRIBES THE PAIN... 31 YEAR OLD MALE PATIENT WITH HISTORY OF CHRONIC ABDOMINAL PAIN. PATIENT DESCRIBES THE PAIN ACHING, SHARP, STABBING, THROBBING, SORE, SHOOTING, IT COMES AND GOES, AND HAVING IT ALL THE TIME WITH A PAIN SCORE OF 8/10 ON TODAY'S VISIT. PATIENT REPORTS THE SPINAL COLUMN STIMULATOR IS HELPING WITH THE ABDOMINAL PAIN, BUT THERE IS PAIN AT THE BATTERY SITE. PATIENT REPORTS THAT HE HAS FALLEN A LOT LATELY. PATIENT STATES THAT DUE TO THE PAIN IN THE BACK WHERE THE BATTERY IS LOCATED HE HAS DIFFICULTIES SLEEPING AT NIGHT ROLL OVER UNINTENTIONALLY WILL GREATLY INCREASE HIS PAIN. PATIENT DENIES UNEXPLAINABLE WEIGHT LOSS, FEVER, CHILLS, NEW CHANGES ON HIS URINARY OR BOWEL CONTROL. FALL RISK SCREENING: SCREENING :NO FALLS IN THE PAST YEAR CURRENT MEDICATIONS TAKING STOOL SOFTENER 100 MG CAPSULE 1 CAPSULE NEEDED ORALLY BID TAKING OXCARBAZEPINE 300 MG TABLET 1 TAB(S) ORALLY BID TAKING VENLAFAXINE HCL 37.5 MG TABLET 2 TABLET WITH FOOD ORALLY DAILY TAKING VALIUM 5 MG TABLET 1-2 TABLET NEEDED ORALLY QID TAKING ZYRTEC ALLERGY 10 MG TABLET 1 TABLET ORALLY ONCE A DAY TAKING LIDOCAINE 5 % OINTMENT 1 APPLICATION TO AFFECTED AREA NEEDED EXTERNALLY THREE TIMES A DAY TO PAINFUL AREA LOW BACK TAKING ABILIFY 5 MG TABLET 1 TABLET ORALLY ONCE A DAY NOT-TAKING NORTRIPTYLINE HCL 25 MG CAPSULE 1 CAPSULE ORALLY TWICE A DAY NOT-TAKING TIZANIDINE HCL 4 MG TABLET 1 TABLET NEEDED ORALLY THREE TIMES A DAY NOT-TAKING LIDOCAINE-PRILOCAINE 2.5-2.5 % CREAM DIRECTED EXTERNALLY APPLY TO PAIN AREAS OF LOW BACK NEAR INCISIONS Q 6 HRS PRN DISCONTINUED VENLAFAXINE HCL 100 MG TABLET 1 TAB FOOD ORALLY QD DISCONTINUED ARIPIPRAZOLE 5 MG TABLET 1 TABLET ORALLY ONCE A DAY DISCONTINUED CEPHALEXIN 500 MG CAPSULE 1 CAPSULE ORALLY EVERY 12 HRS DISCONTINUED GABAPENTIN 300 MG CAPSULE 1 CAPSULE ORALLY THREE TIMES A DAY MEDICATION LIST REVIEWED AND RECONCILED WITH THE PATIENT PAST MEDICAL HISTORY PROSTATE ENLARGEMENT CHRONIC KIDNEY INFECTION GASTROPARESIS ALLERGIES STEROIDS - TPI: NAUSEA/VOMITING: SIDE EFFECTS SOCIAL HISTORY GENERAL: TOBACCO USE ARE YOU A:CURRENT SMOKER HOW MANY CIGARETTES A DAY DO YOU SMOKE?31 OR MORE HOW SOON AFTER YOU WAKE UP DO YOU SMOKE YOUR FIRST CIGARETTE?WITHIN 5 MIN HOW OFTEN DO YOU SMOKE CIGARETTES?EVERY DAY PATIENT COUNSELED ON THE DANGERS OF TOBACCO USE AND URGED TO QUIT:01/19/2017 ARE YOU INTERESTED IN QUITTING?NOT READY TO QUIT STATES HE WON'T QUIT--HE HAS TOO MANY OTHER ISSUES COUNSELED THE PATIENT ON SMOKING EFFECTS, EDUCATION [id number]/2017 PAIN CLINIC PFS, CLERGY, PUBLIC HEALTH REFERRALS CLERGY REFERRAL NEEDED?NO WAS THE PROVIDER NOTIFIED OF ANY PERTINENT INFO?NO PFS REFERRAL NEEDED?NO PUBLIC HEALTH REFERRAL NEEDED?NO PATIENT: ____. REVIEW OF SYSTEMS REVIEWED BY: PROVIDER: . CONSTITUTIONAL: ANY CHANGE IN YOUR MEDICAL CONDITION? NO . CHILLS NO . FEVER NO . INFECTION: DO YOU HAVE NEW INFECTIONS? NO . DO YOU HAVE HISTORY OF MRSA? NO . MUSCULOSKELETAL: ANY NEW PATTERNS OF PAIN OR NUMBNESS? YES, NUMBNESS LOW BACK RADIATING DOWN LEGS X 1 MONTH . GASTROENTEROLOGY: ANY NEW CHANGE IN BOWEL CONTROL? NO . GENITOURINARY: ANY NEW CHANGE IN BLADDER CONTROL? NO . IS THERE A CHANCE YOU COULD BE ? NO . HEMATOLOGY/LYMPH: DO YOU TAKE ANY BLOOD THINNERS? (FOR EXAMPLE- COUMADIN, PLAVIX, AGGRENOX, PLATEL, PRADAXA, OR XARELTO) NO . WHEN WAS YOUR LAST DOSE? DATE: TIME: . NEUROLOGY: HAVE YOU FALLEN IN THE PAST 6 MONTHS? YES, SEVERAL TIMES NO INJURIES . ANY NEW EXTREMITY NUMBNESS OR WEAKNESS? NO . CARDIOLOGY: DO YOU HAVE A PACEMAKER OR DEFIBRILLATOR? NO . RESPIRATORY: HAVE YOU BEEN SICK IN THE PAST WEEK? NO . FEVER NO . FLU LIKE SYMPTOMS? NO . COUGH NO . INTEGUMENTARY: DO YOU HAVE ANY RASHES OR OPEN SORES? NO . ALLERGIC/IMMUNO: ARE YOU ALLERGIC TO SHELLFISH OR IV DYE? NO . ANY NEW ALLERGIES? NO . PSYCHIATRIC: DO YOU HAVE THOUGHTS OF HURTING YOURSELF OR SOMEONE ELSE? NO . ARE YOU ABUSED, NEGLECTED, OR IN AN UNSAFE ENVIRONMENT? NO . ENDOCRINOLOGY: ARE YOU DIABETIC? NO . OTHER: DO YOU NEED ANY PRESCRIPTIONS? NO . IF YES, PLEASE LIST: ____ . ANY NEW PROBLEMS WITH YOUR MEDICATIONS? NO . WHEN DID YOU LAST EAT? ____ . WHEN DID YOU LAST DRINK? ____ . WHAT DID YOU LAST DRINK? ____ . NAME OF PERSON DRIVING YOU HOME? ____ . DO YOU HAVE ANY OTHER QUESTIONS OR CONCERNS YES,NOTHING IS WORKING FOR HIS PAIN. HE THREW HIS GABAPENTIN DOWN THE TOILET--IT DIDN'T WORK. DCS IS NOT EFFECTIVE, IT TAKES THE FRONT PAIN AWAY BUT THE BACK IS WORSE . VITAL SIGNS WT 130.8 LBS, HT 68 IN, BMI 19.89 INDEX, BP 118/68 MM HG, HR 77 /MIN, RR 16 /MIN, TEMP 97.8 F, OXYGEN SAT % 100%, NA INITIALS TL 0856, REVIEWED BY: ARLYN. EXAMINATION : PATIENT IS ALERT O X 3 AND COOPERATIVE. HYPERPATHIA OVER THE BATTERY SITE AND OVER THE SCAR AREA. THERE IS A MIDLINE INCISIONAL SCAR. ASSESSMENTS UNSPECIFIED ABDOMINAL PAIN - R10.9 (PRIMARY) TREATMENT UNSPECIFIED ABDOMINAL PAIN NOTES: WE DISCUSSED SEVERAL ISSUES WITH MR. KO'S PAIN MANAGEMENT CASE. PATIENT EXPRESSED THAT A STUDY UNDER X-RAY IS NOT NEEDED AT THIS TIME. I DISCUSSED A FEW OPTIONS WITH THE PATIENT IS REGARDS TO THE PAIN IN HIS BACK. OPTION 1 WE CAN REMOVE THE SCS DEVICE, OPTION 2 A REVISION OF THE DEVICE, OR OPTION 3 MEDICATION MANAGEMENT. PATIENT EXPRESSED THAT HE WOULD LIKE TO CONTINUE WITH PAIN MANAGEMENT FOR THE PAIN IN HIS BACK. PATIENT WILL FOLLOW UP WITH TIMA ALICIA IN 2 WEEKS. PROCEDURE CODES FA211 ESTABILISHED PATIENT [facility] CHARGE G8730 PAIN ASSESS POS TOOL F/U PLAN DOC G8427 DOC MEDS VERIFIED W/PT OR RE DISPOSITION & COMMUNICATION FOLLOW UP 2 WEEKS ELECTRONICALLY SIGNED BY MABLE HORTON MD ON 01/29/2017 AT 08:15 AM EDT DISCLAIMER : THIS IS A VISIT SUMMARY EXTRACTED FROM THE [employer] CHART. IT IS NOT A COPY OF THE [employer] PROGRESS NOTE. MTDLarry
== END ==
LOC: M PAIN 08:40
PROVIDERS: ATTEND Anesthesiology
DX: G89.29 Other chronic pain (principal); R10.9 Unspecified abdominal pain; F17.210 Nicotine dependence, cigarettes, uncomplicated; Z88.8 Allergy status to other drugs, medicaments and biological substances; Z79.899 Other long term (current) drug therapy

== ENCOUNTER → 2017-02-01 | Outpatient (CLI) | payer OTHER ==
[~2017-02-01] MED LIST changes: +CARI350T PO; -CARI350T20 PO; +VENL37.52 PO; -VENL37CA PO
--- NOTE | 2017-02-18 00:35 | ECWPNPC ---
PATIENT NAME: HEENA KO : 1985 GENDER: MALE VISIT DATE: 02/01/2017 DISCHARGE DATE: 02/01/17 1124 VISIT LOCKED DATE TIME: PHYSICIAN: TIMA ALICIA RESOURCE: TIMA ALICIA REASON FOR APPOINTMENT 1. PAIN IN THE BACK HISTORY OF PRESENT ILLNESS HISTORY OF PRESENT ILLNESS: PAIN THE PATIENT DESCRIBES THE PAIN... FALL RISK SCREENING: SCREENING :NO FALLS IN THE PAST YEAR TODAY'S VISIT: NOTES: RATES PAIN TODAY 8/10 AT THE BACK OVER THE DCS UNIT. . DESCRIBES PAIN INTERMITTANT, SHARP AND STABBING, SHOOTING, TENDER AND THROBBING. REPORTS SLEEP IS STILL AN ISSUE. ABD PAIN IS UNDER CONTROL WITH DCS. HAS HAD SEVERAL FALLS, ESPECILLLY WHEN TURNING TO THE RIGHT THE DCS PRODUCES A SHOCK LIKE PAIN. REPORTS HAS BEEN GAINING WEIGHT WITH PROTEIN SHAKE.. CURRENT MEDICATIONS TAKING STOOL SOFTENER 100 MG CAPSULE 1 CAPSULE NEEDED ORALLY BID TAKING OXCARBAZEPINE 300 MG TABLET 1 TAB(S) ORALLY BID TAKING VENLAFAXINE HCL 37.5 MG TABLET 2 TABLET WITH FOOD ORALLY DAILY TAKING VALIUM 5 MG TABLET 1-2 TABLET NEEDED ORALLY QID TAKING ZYRTEC ALLERGY 10 MG TABLET 1 TABLET ORALLY ONCE A DAY TAKING LIDOCAINE 5 % OINTMENT 1 APPLICATION TO AFFECTED AREA NEEDED EXTERNALLY THREE TIMES A DAY TO PAINFUL AREA LOW BACK TAKING ABILIFY 5 MG TABLET 1 TABLET ORALLY ONCE A DAY NOT-TAKING NORTRIPTYLINE HCL 25 MG CAPSULE 1 CAPSULE ORALLY TWICE A DAY NOT-TAKING TIZANIDINE HCL 4 MG TABLET 1 TABLET NEEDED ORALLY THREE TIMES A DAY NOT-TAKING LIDOCAINE-PRILOCAINE 2.5-2.5 % CREAM DIRECTED EXTERNALLY APPLY TO PAIN AREAS OF LOW BACK NEAR INCISIONS Q 6 HRS PRN MEDICATION LIST REVIEWED AND RECONCILED WITH THE PATIENT PAST MEDICAL HISTORY PROSTATE ENLARGEMENT CHRONIC KIDNEY INFECTION GASTROPARESIS ALLERGIES STEROIDS - TPI: NAUSEA/VOMITING: SIDE EFFECTS REVIEW OF SYSTEMS REVIEWED BY: PROVIDER: TIMA CEDILLO . CONSTITUTIONAL: ANY CHANGE IN YOUR MEDICAL CONDITION? NO . CHILLS NO . FEVER NO . INFECTION: DO YOU HAVE NEW INFECTIONS? NO . DO YOU HAVE HISTORY OF MRSA? NO . MUSCULOSKELETAL: ANY NEW PATTERNS OF PAIN OR NUMBNESS? YES PT REPORTS INCREASE IN PAIN LEVEL LOCATED AT DCS SITE. . GASTROENTEROLOGY: ANY NEW CHANGE IN BOWEL CONTROL? NO . GENITOURINARY: ANY NEW CHANGE IN BLADDER CONTROL? NO . IS THERE A CHANCE YOU COULD BE ? NO . HEMATOLOGY/LYMPH: DO YOU TAKE ANY BLOOD THINNERS? (FOR EXAMPLE- COUMADIN, PLAVIX, AGGRENOX, PLATEL, PRADAXA, OR XARELTO) NO . WHEN WAS YOUR LAST DOSE? DATE: TIME: . NEUROLOGY: HAVE YOU FALLEN IN THE PAST 6 MONTHS? YES PT REPORTS INCREASED NUMBER OF FALLS, 4-5/WEEK. NO INJURIES PER PT. . ANY NEW EXTREMITY NUMBNESS OR WEAKNESS? NO . CARDIOLOGY: DO YOU HAVE A PACEMAKER OR DEFIBRILLATOR? NO . RESPIRATORY: HAVE YOU BEEN SICK IN THE PAST WEEK? NO . FEVER NO . FLU LIKE SYMPTOMS? NO . COUGH NO . INTEGUMENTARY: DO YOU HAVE ANY RASHES OR OPEN SORES? NO . ALLERGIC/IMMUNO: ARE YOU ALLERGIC TO SHELLFISH OR IV DYE? NO . ANY NEW ALLERGIES? NO . PSYCHIATRIC: DO YOU HAVE THOUGHTS OF HURTING YOURSELF OR SOMEONE ELSE? NO . ARE YOU ABUSED, NEGLECTED, OR IN AN UNSAFE ENVIRONMENT? NO . ENDOCRINOLOGY: ARE YOU DIABETIC? NO . OTHER: DO YOU NEED ANY PRESCRIPTIONS? NO . IF YES, PLEASE LIST: ____ . ANY NEW PROBLEMS WITH YOUR MEDICATIONS? NO . WHEN DID YOU LAST EAT? ____ . WHEN DID YOU LAST DRINK? ____ . WHAT DID YOU LAST DRINK? ____ . NAME OF PERSON DRIVING YOU HOME? ____ . DO YOU HAVE ANY OTHER QUESTIONS OR CONCERNS NO . VITAL SIGNS WT 138.5 LBS, HT 68 IN, BMI 21.06 INDEX, BP 116/67 MM HG, HR 82 /MIN, RR 16 /MIN, TEMP 98.1 F, OXYGEN SAT % 100%, SAFE IN ENV? (Y/N) YES, NA INITIALS 10:27, REVIEWED BY: APRIL. EXAMINATION GENERAL EXAMINATION: GENERAL APPEARANCE:THIN, COLOR PALE. USING MOBILITY CHAIR. PSYCHALERT , ORIENTED X 3 . LUNGS:CLEAR TO AUSCULTATION BILATERALLY. HEART:HEART RATE REGULAR, RAPID. ABDOMEN:SOFT, BOWEL SOUNDS PRESENT. UROSTOMY FUNCTIONAL. MUSCULOSKELETAL:TENDER OVER ANCHORS ALONG SPINAL CANAL. EXQUISITE TENDERNESS OVER PROX RIGHT GENERATOR AND INCREASED PAIN WITH MOVEMENT OF GENERATOR.. EXTREMITIES:NO EDEMA. ASSESSMENTS ABDOMINAL PAIN - R10.9 (PRIMARY) MYALGIA - M79.1 TREATMENT ABDOMINAL PAIN START LIDOCAINE PATCH, 5 %, 1 PATCH TO SKIN REMOVE AFTER 12 HOURS, EXTERNALLY, ONCE A DAY ON 12 HRS OFF 12 HOURS, 30 DAY(S), 30, REFILLS 1 START INDOMETHACIN CAPSULE, 50 MG, 1 CAPSULE WITH FOOD OR MILK, ORALLY, TWICE A DAY, 30 DAY(S), 60, REFILLS 1 START TRAMADOL HCL TABLET, 50 MG, 1 TABLET NEEDED, ORALLY, EVERY 6-8 HOURS PRN PAIN MDD=3 HRS, 30 DAY(S), 90, REFILLS 1 NOTES: NO IBUPROFEN WHEN TAKING INDOMETHICIN. PROCEDURE CODES [id number] ESTABILISHED PATIENT [facility] CHARGE DISPOSITION & COMMUNICATION FOLLOW UP 1 MONTH (REASON: ABD/BACK PAIN) ELECTRONICALLY SIGNED BY IDA PARRA ON 02/17/2017 AT 08:28 AM EDT DISCLAIMER : THIS IS A VISIT SUMMARY EXTRACTED FROM THE [employer] CHART. IT IS NOT A COPY OF THE [employer] PROGRESS NOTE. [facility]
== END ==
LOC: M PAIN 10:00
PROVIDERS: ATTEND Nurse Practitioner Family
DX: R10.9 Unspecified abdominal pain (principal); M79.1 Myalgia; Z79.899 Other long term (current) drug therapy; Z88.8 Allergy status to other drugs, medicaments and biological substances; Z79.891 Long term (current) use of opiate analgesic

== ENCOUNTER → 2017-03-09 | Outpatient (CLI) | payer OTHER ==
--- NOTE | 2017-04-01 00:54 | ECWPNPC ---
PATIENT NAME: HEENA KO JR : 1985 GENDER: MALE VISIT DATE: 03/09/2017 DISCHARGE DATE: 03/09/17 1058 VISIT LOCKED DATE TIME: PHYSICIAN: TIMA ALICIA RESOURCE: TIMA ALICIA REASON FOR APPOINTMENT 1. ABD/BACK PAIN HISTORY OF PRESENT ILLNESS HISTORY OF PRESENT ILLNESS: PAIN THE PATIENT DESCRIBES THE PAIN... FALL RISK SCREENING: SCREENING :NO FALLS IN THE PAST YEAR TODAY'S VISIT: NOTES: STATES INDOCIN DID NOT HELP AND MADE HIM SICK AND DIZZY NOTES TRAMADOL MAKES HIM DIZZY. DCS IS WORKING WELL BUT STILL HAVING PAIN OVER THE BATTERY PACK AND ANCHORS. HAS LOST WEIGHT OVER LAST 2 MONTHS. IS GETTING SOME SLEEP. RATES PAIN A 5-7/10. NOTES WORST AREA OF PAIN IS STILL OVER THE DCS ANCHORS AND OVER THE GENERATOR IN RIGHT FLANK.. CURRENT MEDICATIONS TAKING STOOL SOFTENER 100 MG CAPSULE 1 CAPSULE NEEDED ORALLY BID TAKING OXCARBAZEPINE 300 MG TABLET 1 TAB(S) ORALLY BID TAKING VENLAFAXINE HCL 37.5 MG TABLET 2 TABLET WITH FOOD ORALLY DAILY TAKING VALIUM 5 MG TABLET 1-2 TABLET NEEDED ORALLY QID TAKING ZYRTEC ALLERGY 10 MG TABLET 1 TABLET ORALLY ONCE A DAY TAKING LIDOCAINE 5 % OINTMENT 1 APPLICATION TO AFFECTED AREA NEEDED EXTERNALLY THREE TIMES A DAY TO PAINFUL AREA LOW BACK TAKING ABILIFY 5 MG TABLET 1 TABLET ORALLY ONCE A DAY TAKING LIDOCAINE 5 % PATCH 1 PATCH TO SKIN REMOVE AFTER 12 HOURS EXTERNALLY ONCE A DAY ON 12 HRS OFF 12 HOURS TAKING INDOMETHACIN 50 MG CAPSULE 1 CAPSULE WITH FOOD OR MILK ORALLY TWICE A DAY TAKING TRAMADOL HCL 50 MG TABLET 1 TABLET NEEDED ORALLY EVERY 6-8 HOURS PRN PAIN MDD=3 HRS NOT-TAKING NORTRIPTYLINE HCL 25 MG CAPSULE 1 CAPSULE ORALLY TWICE A DAY NOT-TAKING TIZANIDINE HCL 4 MG TABLET 1 TABLET NEEDED ORALLY THREE TIMES A DAY NOT-TAKING LIDOCAINE-PRILOCAINE 2.5-2.5 % CREAM DIRECTED EXTERNALLY APPLY TO PAIN AREAS OF LOW BACK NEAR INCISIONS Q 6 HRS PRN MEDICATION LIST REVIEWED AND RECONCILED WITH THE PATIENT PAST MEDICAL HISTORY PROSTATE ENLARGEMENT CHRONIC KIDNEY INFECTION GASTROPARESIS ALLERGIES STEROIDS - TPI: NAUSEA/VOMITING: SIDE EFFECTS SURGICAL HISTORY URETER SURGERY AGE 10 PROSTATE OPENING AGE 20 CYSTECTOMY AGE 29 DORSAL COLUMN STIMULATOR 07/2016 HOSPITALIZATION/MAJOR DIAGNOSTIC PROCEDURE SURG RELATED REVIEW OF SYSTEMS REVIEWED BY: PROVIDER: TIMA CEDILLO . CONSTITUTIONAL: ANY CHANGE IN YOUR MEDICAL CONDITION? NO . CHILLS NO . FEVER NO . INFECTION: DO YOU HAVE NEW INFECTIONS? NO . DO YOU HAVE HISTORY OF MRSA? NO . MUSCULOSKELETAL: ANY NEW PATTERNS OF PAIN OR NUMBNESS? NO . GASTROENTEROLOGY: ANY NEW CHANGE IN BOWEL CONTROL? NO . GENITOURINARY: ANY NEW CHANGE IN BLADDER CONTROL? NO . IS THERE A CHANCE YOU COULD BE ? NO . HEMATOLOGY/LYMPH: DO YOU TAKE ANY BLOOD THINNERS? (FOR EXAMPLE- COUMADIN, PLAVIX, AGGRENOX, PLATEL, PRADAXA, OR XARELTO) NO . WHEN WAS YOUR LAST DOSE? DATE: TIME: . NEUROLOGY: HAVE YOU FALLEN IN THE PAST 6 MONTHS? YES, PT STATES HE FELL A FEW DAYS AGO FROM DCS JOLTING HIM, HE TRIPPED AND FELL OVER DOGS, PT DENIES INJURIES REQUIRING MEDICAL [place] . ANY NEW EXTREMITY NUMBNESS OR WEAKNESS? NO . CARDIOLOGY: DO YOU HAVE A PACEMAKER OR DEFIBRILLATOR? NO . RESPIRATORY: HAVE YOU BEEN SICK IN THE PAST WEEK? NO . FEVER NO . FLU LIKE SYMPTOMS? NO . COUGH NO . INTEGUMENTARY: DO YOU HAVE ANY RASHES OR OPEN SORES? NO . ALLERGIC/IMMUNO: ARE YOU ALLERGIC TO SHELLFISH OR IV DYE? NO . ANY NEW ALLERGIES? NO . PSYCHIATRIC: DO YOU HAVE THOUGHTS OF HURTING YOURSELF OR SOMEONE ELSE? NO . ARE YOU ABUSED, NEGLECTED, OR IN AN UNSAFE ENVIRONMENT? NO . ENDOCRINOLOGY: ARE YOU DIABETIC? NO . OTHER: DO YOU NEED ANY PRESCRIPTIONS? NO, TO DISCUSS WITH AIDEE ALICIA . IF YES, PLEASE LIST: ____ . ANY NEW PROBLEMS WITH YOUR MEDICATIONS? NO . WHEN DID YOU LAST EAT? ____ . WHEN DID YOU LAST DRINK? ____ . WHAT DID YOU LAST DRINK? ____ . NAME OF PERSON DRIVING YOU HOME? ____ . DO YOU HAVE ANY OTHER QUESTIONS OR CONCERNS NO . VITAL SIGNS WT 125.2 LBS, HT 68 IN, BMI 19.03 INDEX, BP 128/87 MM HG, HR 74 /MIN, RR 18 /MIN, TEMP 98.8 F, OXYGEN SAT % 100%, SAFE IN ENV? (Y/N) Y, NA INITIALS MS 09:57, REVIEWED BY: EM. EXAMINATION GENERAL EXAMINATION: GENERAL APPEARANCE:THIN, COLOR PALE. . PSYCHALERT , ORIENTED X 3 . LUNGS:CLEAR TO AUSCULTATION BILATERALLY. HEART:HEART RATE REGULAR, RAPID. ABDOMEN:SOFT, BOWEL SOUNDS PRESENT. UROSTOMY FUNCTIONAL. MUSCULOSKELETAL:TENDER OVER ANCHORS ALONG SPINAL CANAL. EXQUISITE TENDERNESS OVER PROX RIGHT GENERATOR AND INCREASED PAIN WITH MOVEMENT OF GENERATOR.. EXTREMITIES:NO EDEMA. ASSESSMENTS ABDOMINAL PAIN - R10.9 (PRIMARY) MYALGIA - M79.1 TREATMENT ABDOMINAL PAIN REFILL LIDOCAINE OINTMENT, 5 %, 1 APPLICATION TO AFFECTED AREA NEEDED, EXTERNALLY, THREE TIMES A DAY TO PAINFUL AREA LOW BACK, 30 DAY(S), 2, REFILLS 1 NOTES: COUNT AND DESTROY TRAMADOL, DESTROY INDOCIN. PROCEDURE CODES FA211 ESTABILISHED PATIENT [facility] CHARGE DISPOSITION & COMMUNICATION FOLLOW UP 1 MONTH (REASON: ABD PAIN) ELECTRONICALLY SIGNED BY IDA PARRA ON 03/31/2017 AT 08:50 AM EDT DISCLAIMER : THIS IS A VISIT SUMMARY EXTRACTED FROM THE [employer] CHART. IT IS NOT A COPY OF THE [employer] PROGRESS NOTE. KEMI
== END ==
LOC: M PAIN 09:20
PROVIDERS: ATTEND Nurse Practitioner Family
DX: G89.29 Other chronic pain (principal); R10.9 Unspecified abdominal pain; M79.1 Myalgia; Z88.8 Allergy status to other drugs, medicaments and biological substances; Z79.899 Other long term (current) drug therapy

== ENCOUNTER → 2017-04-08 | Outpatient (CLI) | payer OTHER ==
--- NOTE | 2017-04-24 00:40 | ECWPNPC ---
PATIENT NAME: HEENA KO JR : 1985 GENDER: MALE VISIT DATE: 04/08/2017 DISCHARGE DATE: 04/08/17 0939 VISIT LOCKED DATE TIME: PHYSICIAN: TIMA ALICIA RESOURCE: TIMA ALICIA HISTORY OF PRESENT ILLNESS HISTORY OF PRESENT ILLNESS: PAIN THE PATIENT DESCRIBES THE PAIN... FALL RISK SCREENING: SCREENING :NO FALLS IN THE PAST YEAR TODAY'S VISIT: NOTES: RATES PAIN TODAY 7/10. DESCRIBES PAIN ACHING, SHARP, STABBING, TENDER, THROBBING AND SORE. NOTES BOTH MID BACK AND ABD PAIN. DORSAL COLUMN STIM IS NOT ABLE TO BE USED HE DOES NOT CURRENTLY HAVE THE REMOTE. TO OBTAIN TEMPORARY REMOTE TODAY. STILL WITH SOME ACUTE TENDERNESS OVER THE ANCHOR SITE ON THE BACK. STILL WITH DIFFICULTY WITH SLEEP. NITE PAIN LEVEL IS 10/10 AT NITE. DOES BETTER WITH LIDODERM PATCHES. . CURRENT MEDICATIONS TAKING STOOL SOFTENER 100 MG CAPSULE 1 CAPSULE NEEDED ORALLY BID TAKING OXCARBAZEPINE 300 MG TABLET 1 TAB(S) ORALLY BID TAKING VENLAFAXINE HCL 37.5 MG TABLET 2 TABLET WITH FOOD ORALLY DAILY TAKING VALIUM 5 MG TABLET 1-2 TABLET NEEDED ORALLY QID TAKING ZYRTEC ALLERGY 10 MG TABLET 1 TABLET ORALLY ONCE A DAY TAKING ABILIFY 5 MG TABLET 1 TABLET ORALLY ONCE A DAY TAKING LIDOCAINE 5 % PATCH 1 PATCH TO SKIN REMOVE AFTER 12 HOURS EXTERNALLY ONCE A DAY ON 12 HRS OFF 12 HOURS NOT-TAKING INDOMETHACIN 50 MG CAPSULE 1 CAPSULE WITH FOOD OR MILK ORALLY TWICE A DAY NOT-TAKING TRAMADOL HCL 50 MG TABLET 1 TABLET NEEDED ORALLY EVERY 6-8 HOURS PRN PAIN MDD=3 HRS NOT-TAKING LIDOCAINE 5 % OINTMENT 1 APPLICATION TO AFFECTED AREA NEEDED EXTERNALLY THREE TIMES A DAY TO PAINFUL AREA LOW BACK NOT-TAKING NORTRIPTYLINE HCL 25 MG CAPSULE 1 CAPSULE ORALLY TWICE A DAY NOT-TAKING TIZANIDINE HCL 4 MG TABLET 1 TABLET NEEDED ORALLY THREE TIMES A DAY NOT-TAKING LIDOCAINE-PRILOCAINE 2.5-2.5 % CREAM DIRECTED EXTERNALLY APPLY TO PAIN AREAS OF LOW BACK NEAR INCISIONS Q 6 HRS PRN MEDICATION LIST REVIEWED AND RECONCILED WITH THE PATIENT PAST MEDICAL HISTORY PROSTATE ENLARGEMENT CHRONIC KIDNEY INFECTION GASTROPARESIS ALLERGIES STEROIDS - TPI: NAUSEA/VOMITING: SIDE EFFECTS REVIEW OF SYSTEMS REVIEWED BY: PROVIDER: TIMA ALICIA JACK PRIZER . CONSTITUTIONAL: ANY CHANGE IN YOUR MEDICAL CONDITION? NO . CHILLS NO . FEVER NO . INFECTION: DO YOU HAVE NEW INFECTIONS? NO . DO YOU HAVE HISTORY OF MRSA? NO . MUSCULOSKELETAL: ANY NEW PATTERNS OF PAIN OR NUMBNESS? NO . GASTROENTEROLOGY: ANY NEW CHANGE IN BOWEL CONTROL? NO . GENITOURINARY: ANY NEW CHANGE IN BLADDER CONTROL? NO . IS THERE A CHANCE YOU COULD BE ? NO . HEMATOLOGY/LYMPH: DO YOU TAKE ANY BLOOD THINNERS? (FOR EXAMPLE- COUMADIN, PLAVIX, AGGRENOX, PLATEL, PRADAXA, OR XARELTO) NO . WHEN WAS YOUR LAST DOSE? DATE: TIME: . NEUROLOGY: HAVE YOU FALLEN IN THE PAST 6 MONTHS? YES . ANY NEW EXTREMITY NUMBNESS OR WEAKNESS? NO . CARDIOLOGY: DO YOU HAVE A PACEMAKER OR DEFIBRILLATOR? NO . RESPIRATORY: HAVE YOU BEEN SICK IN THE PAST WEEK? NO . FEVER NO . FLU LIKE SYMPTOMS? NO . COUGH NO . INTEGUMENTARY: DO YOU HAVE ANY RASHES OR OPEN SORES? NO . ALLERGIC/IMMUNO: ARE YOU ALLERGIC TO SHELLFISH OR IV DYE? NO . ANY NEW ALLERGIES? NO . PSYCHIATRIC: DO YOU HAVE THOUGHTS OF HURTING YOURSELF OR SOMEONE ELSE? NO . ARE YOU ABUSED, NEGLECTED, OR IN AN UNSAFE ENVIRONMENT? NO . ENDOCRINOLOGY: ARE YOU DIABETIC? NO . OTHER: DO YOU NEED ANY PRESCRIPTIONS? YES . IF YES, PLEASE LIST: ____ . ANY NEW PROBLEMS WITH YOUR MEDICATIONS? NO . WHEN DID YOU LAST EAT? ____ . WHEN DID YOU LAST DRINK? ____ . WHAT DID YOU LAST DRINK? ____ . NAME OF PERSON DRIVING YOU HOME? ____ . DO YOU HAVE ANY OTHER QUESTIONS OR CONCERNS NO . VITAL SIGNS WT 128.6 LBS, HT 68 IN, BMI 19.55 INDEX, BP 123/76 MM HG, HR 79 /MIN, RR 18 /MIN, TEMP 98.8 F, OXYGEN SAT % 99%, NA INITIALS CM 0905, REVIEWED BY: NL. EXAMINATION GENERAL EXAMINATION: GENERAL APPEARANCE:THIN, COLOR PALE. NO MOBILITY DEVICE TODAY. PSYCHALERT , ORIENTED X 3 . LUNGS:CLEAR TO AUSCULTATION BILATERALLY. HEART:HEART RATE REGULAR. ABDOMEN:SOFT, BOWEL SOUNDS PRESENT. UROSTOMY FUNCTIONAL. MUSCULOSKELETAL:TENDER OVER ANCHORS ALONG SPINAL CANAL. TENDERNESS OVER PROX RIGHT GENERATOR AND INCREASED PAIN WITH MOVEMENT OF GENERATOR.. EXTREMITIES:NO EDEMA. ASSESSMENTS ABDOMINAL PAIN - R10.9 (PRIMARY) MYALGIA - M79.1 TREATMENT ABDOMINAL PAIN REFILL LIDOCAINE PATCH, 5 %, 1 PATCH TO SKIN REMOVE AFTER 12 HOURS, EXTERNALLY, ONCE A DAY ON 12 HRS OFF 12 HOURS, 30 DAY(S), 30, REFILLS 1 NOTES: UTOX TODAY. CLINICAL NOTES: ISTOP REGISTRY REVIEWED AND DEMNOSTRATES COMPLLIANCE. PROCEDURE CODES FA211 ESTABILISHED PATIENT [facility] CHARGE DISPOSITION & COMMUNICATION FOLLOW UP 3 WEEKS (REASON: ABD PAIN) ELECTRONICALLY SIGNED BY IDA PARRA ON 04/23/2017 AT 08:46 AM EDT DISCLAIMER : THIS IS A VISIT SUMMARY EXTRACTED FROM THE [employer] CHART. IT IS NOT A COPY OF THE [employer] PROGRESS NOTE. KEMI
== END ==
LOC: M PAIN 09:00
PROVIDERS: ATTEND Nurse Practitioner Family
DX: R10.9 Unspecified abdominal pain (principal); M79.1 Myalgia; M54.9 Dorsalgia, unspecified; Z79.899 Other long term (current) drug therapy; Z79.891 Long term (current) use of opiate analgesic; Z88.8 Allergy status to other drugs, medicaments and biological substances

== ENCOUNTER → 2017-04-29 | Outpatient (CLI) | payer OTHER ==
--- NOTE | 2017-05-26 01:44 | ECWPNPC ---
PATIENT NAME: HEENA KO JR : 1985 GENDER: MALE VISIT DATE: 04/29/2017 DISCHARGE DATE: 04/29/17 0000 VISIT LOCKED DATE TIME: PHYSICIAN: TIMA ALICIA RESOURCE: TIMA ALICIA REASON FOR APPOINTMENT 1. BACK HISTORY OF PRESENT ILLNESS HISTORY OF PRESENT ILLNESS: PAIN THE PATIENT DESCRIBES THE PAIN... FALL RISK SCREENING: SCREENING :NO FALLS IN THE PAST YEAR TODAY'S VISIT: NOTES: RATES PAIN TODAY 7/10. DESCRIBES PAIN INTERMITTANT, SHARP, STABBING, TENDER, SHOOTING THROBBING AND SORE. PAIN IS CENTERED OVER DCS GENERATOR LEFT FLANK AND THE LUMBAR SPINOUS PROCESSES , AND THROUGH THE ABDOMEN BUT BUT THIS UNDER CONTROL WITH THE STIM. BOWEL FUNCTION HAS IMPROVED. SLEEP REMAINS SIGN DISRUPTED. . CURRENT MEDICATIONS TAKING STOOL SOFTENER 100 MG CAPSULE 1 CAPSULE NEEDED ORALLY BID TAKING OXCARBAZEPINE 300 MG TABLET 1 TAB(S) ORALLY BID TAKING VENLAFAXINE HCL 37.5 MG TABLET 2 TABLET WITH FOOD ORALLY DAILY TAKING VALIUM 5 MG TABLET 1-2 TABLET NEEDED ORALLY QID TAKING ZYRTEC ALLERGY 10 MG TABLET 1 TABLET ORALLY ONCE A DAY TAKING ABILIFY 5 MG TABLET 1 TABLET ORALLY ONCE A DAY TAKING LIDOCAINE 5 % PATCH 1 PATCH TO SKIN REMOVE AFTER 12 HOURS EXTERNALLY ONCE A DAY ON 12 HRS OFF 12 HOURS NOT-TAKING INDOMETHACIN 50 MG CAPSULE 1 CAPSULE WITH FOOD OR MILK ORALLY TWICE A DAY NOT-TAKING TRAMADOL HCL 50 MG TABLET 1 TABLET NEEDED ORALLY EVERY 6-8 HOURS PRN PAIN MDD=3 HRS NOT-TAKING LIDOCAINE 5 % OINTMENT 1 APPLICATION TO AFFECTED AREA NEEDED EXTERNALLY THREE TIMES A DAY TO PAINFUL AREA LOW BACK NOT-TAKING NORTRIPTYLINE HCL 25 MG CAPSULE 1 CAPSULE ORALLY TWICE A DAY NOT-TAKING TIZANIDINE HCL 4 MG TABLET 1 TABLET NEEDED ORALLY THREE TIMES A DAY NOT-TAKING LIDOCAINE-PRILOCAINE 2.5-2.5 % CREAM DIRECTED EXTERNALLY APPLY TO PAIN AREAS OF LOW BACK NEAR INCISIONS Q 6 HRS PRN MEDICATION LIST REVIEWED AND RECONCILED WITH THE PATIENT PAST MEDICAL HISTORY PROSTATE ENLARGEMENT CHRONIC KIDNEY INFECTION GASTROPARESIS ALLERGIES STEROIDS - TPI: NAUSEA/VOMITING: SIDE EFFECTS SURGICAL HISTORY URETER SURGERY AGE 10 PROSTATE OPENING AGE 20 CYSTECTOMY AGE 29 DORSAL COLUMN STIMULATOR 07/2016 HOSPITALIZATION/MAJOR DIAGNOSTIC PROCEDURE SURG RELATED REVIEW OF SYSTEMS REVIEWED BY: PROVIDER: TIMA ALICIA [employer] . CONSTITUTIONAL: ANY CHANGE IN YOUR MEDICAL CONDITION? NO . CHILLS NO . FEVER NO . INFECTION: DO YOU HAVE NEW INFECTIONS? NO . DO YOU HAVE HISTORY OF MRSA? NO . MUSCULOSKELETAL: ANY NEW PATTERNS OF PAIN OR NUMBNESS? NO . GASTROENTEROLOGY: ANY NEW CHANGE IN BOWEL CONTROL? NO . GENITOURINARY: ANY NEW CHANGE IN BLADDER CONTROL? NO . IS THERE A CHANCE YOU COULD BE ? NO . HEMATOLOGY/LYMPH: DO YOU TAKE ANY BLOOD THINNERS? (FOR EXAMPLE- COUMADIN, PLAVIX, AGGRENOX, PLATEL, PRADAXA, OR XARELTO) NO . WHEN WAS YOUR LAST DOSE? DATE: TIME: . NEUROLOGY: HAVE YOU FALLEN IN THE PAST 6 MONTHS? YES, PT STATES HE TRIPPED AND FELL GETTING IN AND OUT OF SCOOTER, PT DENIES MAJOR INJURIES REQUIRING MEDICAL ATTENTION . ANY NEW EXTREMITY NUMBNESS OR WEAKNESS? NO . CARDIOLOGY: DO YOU HAVE A PACEMAKER OR DEFIBRILLATOR? NO . RESPIRATORY: HAVE YOU BEEN SICK IN THE PAST WEEK? NO . FEVER NO . FLU LIKE SYMPTOMS? NO . COUGH NO . INTEGUMENTARY: DO YOU HAVE ANY RASHES OR OPEN SORES? NO . ALLERGIC/IMMUNO: ARE YOU ALLERGIC TO SHELLFISH OR IV DYE? NO . ANY NEW ALLERGIES? NO . PSYCHIATRIC: DO YOU HAVE THOUGHTS OF HURTING YOURSELF OR SOMEONE ELSE? NO . ARE YOU ABUSED, NEGLECTED, OR IN AN UNSAFE ENVIRONMENT? NO . ENDOCRINOLOGY: ARE YOU DIABETIC? NO . OTHER: DO YOU NEED ANY PRESCRIPTIONS? NO . IF YES, PLEASE LIST: ____ . ANY NEW PROBLEMS WITH YOUR MEDICATIONS? NO . WHEN DID YOU LAST EAT? ____ . WHEN DID YOU LAST DRINK? ____ . WHAT DID YOU LAST DRINK? ____ . NAME OF PERSON DRIVING YOU HOME? ____ . DO YOU HAVE ANY OTHER QUESTIONS OR CONCERNS NO . VITAL SIGNS WT 128.0 LBS, HT 68 IN, BMI 19.46 INDEX, BP 116/67 MM HG, HR 78 /MIN, RR 18 /MIN, TEMP 98.3 F, OXYGEN SAT % 99%, NA INITIALS [id number], REVIEWED BY: EM. EXAMINATION GENERAL EXAMINATION: GENERAL APPEARANCE:THIN, COLOR PALE. NO MOBILITY DEVICE TODAY. PSYCHALERT , ORIENTED X 3 . LUNGS:RHONCHI - CLEAR WITH COUGH. HEART:HEART RATE REGULAR. ABDOMEN:SOFT, BOWEL SOUNDS PRESENT. UROSTOMY FUNCTIONAL. MUSCULOSKELETAL:TENDER OVER ANCHORS ALONG SPINAL CANAL. TENDERNESS OVER PROX RIGHT GENERATOR AND INCREASED PAIN WITH MOVEMENT OF GENERATOR.. EXTREMITIES:NO EDEMA. ASSESSMENTS ABDOMINAL PAIN - R10.9 (PRIMARY) MYALGIA - M79.1 TREATMENT ABDOMINAL PAIN STOP TRAMADOL HCL TABLET, 50 MG, 1 TABLET NEEDED, ORALLY, EVERY 6-8 HOURS PRN PAIN MDD=3 HRS REFILL LIDOCAINE PATCH, 5 %, 1 PATCH TO SKIN REMOVE AFTER 12 HOURS, EXTERNALLY, ONCE A DAY ON 12 HRS OFF 12 HOURS, 30 DAY(S), 30, REFILLS 5 START PERCOCET TABLET, 5-325 MG, 1 TABLET NEEDED, ORALLY, ONE TAB DAILY PRN PAIN MDD=1, 30 DAY(S), 30, REFILLS 0 NOTES: TRY SOME FLEECE TO KEEP STRAP AWAY FROM DCS GENERATOR. CLINICAL NOTES: ISTOP REGISTRY REVIEWED AND DEMNOSTRATES COMPLLIANCE.(REF #[id number]) RECENT URINE TOXICOLOGY REVIEWED. NO UNAUTHORIZED MEDICATIONS. PROCEDURE CODES FA211 ESTABILISHED PATIENT [facility] CHARGE DISPOSITION & COMMUNICATION FOLLOW UP 26-28 DAYS ELECTRONICALLY SIGNED BY IDA PARRA ON 05/25/2017 AT 09:40 PM EDT DISCLAIMER : THIS IS A VISIT SUMMARY EXTRACTED FROM THE [employer] CHART. IT IS NOT A COPY OF THE [employer] PROGRESS NOTE. KEMI
== END ==
LOC: M PAIN 09:45
PROVIDERS: ATTEND Nurse Practitioner Family
DX: G89.29 Other chronic pain (principal); R10.9 Unspecified abdominal pain; M79.1 Myalgia; Z88.8 Allergy status to other drugs, medicaments and biological substances; Z79.899 Other long term (current) drug therapy

== ENCOUNTER → 2017-06-01 | Outpatient (CLI) | payer OTHER | LOC: M PAIN 11:30 | PROVIDERS: ATTEND Nurse Practitioner Family | DX: R10.9 Unspecified abdominal pain (principal); M79.1 Myalgia; Z79.891 Long term (current) use of opiate analgesic; Z79.899 Other long term (current) drug therapy; F17.210 Nicotine dependence, cigarettes, uncomplicated; Z93.6 Other artificial openings of urinary tract status ==

== ENCOUNTER → 2017-06-29 | Outpatient (CLI) | payer OTHER ==
--- NOTE | 2017-07-12 00:49 | ECWPNPC ---
PATIENT NAME: HEENA KO JR : 1985 GENDER: MALE VISIT DATE: 06/29/2017 DISCHARGE DATE: 06/29/17918 VISIT LOCKED DATE TIME: PHYSICIAN: TIMA ALICIA RESOURCE: TIMA ALICIA REASON FOR APPOINTMENT 1. ABD PAIN HISTORY OF PRESENT ILLNESS HISTORY OF PRESENT ILLNESS: PAIN THE PATIENT DESCRIBES THE PAIN... FALL RISK SCREENING: SCREENING :NO FALLS IN THE PAST YEAR TODAY'S VISIT: NOTES: RATES PAIN TODAY 4/10. DESCRIBES PAIN INTERMITTANT AND TENDER. NOTES PAIN IS CENTERED ACROSS ABDOMEN AND AT LOW BACK OVER THE DCS ANCHORS. WALKING HAS IMPROVED. SLEEP HAS IMPROVED WITH CHANGE IN MENTAL HEALTH ,MEDS AND CHANGE IN TIME. . CURRENT MEDICATIONS TAKING STOOL SOFTENER 100 MG CAPSULE 1 CAPSULE NEEDED ORALLY BID TAKING OXCARBAZEPINE 300 MG TABLET 1 TAB(S) ORALLY BID TAKING VENLAFAXINE HCL 37.5 MG TABLET 2 TABLET WITH FOOD ORALLY DAILY TAKING VALIUM 5 MG TABLET 1-2 TABLET NEEDED ORALLY QID TAKING ABILIFY 10 MG TABLET 1 TABLET ORALLY ONCE A DAY TAKING LIDOCAINE 5 % PATCH 1 PATCH TO SKIN REMOVE AFTER 12 HOURS EXTERNALLY ONCE A DAY ON 12 HRS OFF 12 HOURS TAKING PERCOCET 5-325 MG TABLET 1 TABLET NEEDED ORALLY BID PRN MDD2 TAKING TRAZODONE HCL 50 MG TABLET 1-2 TABLET AT BEDTIME NEEDED ORALLY ONCE A DAY NOT-TAKING ZYRTEC ALLERGY 10 MG TABLET 1 TABLET ORALLY ONCE A DAY NOT-TAKING INDOMETHACIN 50 MG CAPSULE 1 CAPSULE WITH FOOD OR MILK ORALLY TWICE A DAY NOT-TAKING LIDOCAINE 5 % OINTMENT 1 APPLICATION TO AFFECTED AREA NEEDED EXTERNALLY THREE TIMES A DAY TO PAINFUL AREA LOW BACK NOT-TAKING NORTRIPTYLINE HCL 25 MG CAPSULE 1 CAPSULE ORALLY TWICE A DAY NOT-TAKING TIZANIDINE HCL 4 MG TABLET 1 TABLET NEEDED ORALLY THREE TIMES A DAY NOT-TAKING LIDOCAINE-PRILOCAINE 2.5-2.5 % CREAM DIRECTED EXTERNALLY APPLY TO PAIN AREAS OF LOW BACK NEAR INCISIONS Q 6 HRS PRN MEDICATION LIST REVIEWED AND RECONCILED WITH THE PATIENT PAST MEDICAL HISTORY PROSTATE ENLARGEMENT CHRONIC KIDNEY INFECTION GASTROPARESIS ALLERGIES STEROIDS - TPI: NAUSEA/VOMITING: SIDE EFFECTS SOCIAL HISTORY GENERAL: TOBACCO USE ARE YOU A:CURRENT SMOKER ARE YOU INTERESTED IN QUITTING?NOT READY TO QUIT STATES HE WON'T QUIT--HE HAS TOO MANY OTHER ISSUES COUNSELED THE PATIENT ON SMOKING EFFECTS, EDUCATION [id number] HOW MANY CIGARETTES A DAY DO YOU SMOKE?31 OR MORE HOW SOON AFTER YOU WAKE UP DO YOU SMOKE YOUR FIRST CIGARETTE?WITHIN 5 MIN HOW OFTEN DO YOU SMOKE CIGARETTES?EVERY DAY PATIENT COUNSELED ON THE DANGERS OF TOBACCO USE AND URGED TO QUIT:01/19/2017 HAS CUT DOWN ON HIS SMOKING TO 1 PACK PER DAY OF 05/31/17 ALCOHOL SCREENING POINTS1 INTERPRETATIONNEGATIVE RECREATIONAL DRUG USE DRUG USE?NO PROTESTANT [id number] NONE LANGUAGE LANGUAGES SPOKEN:GERMAN LEARNING BARRIERS / SPECIAL NEEDS BARRIERS TO LEARNING?NO HEARING IMPAIRED?NO VISION IMPAIRED?YES :CORRECTIVE LENSES COGNITIVELY IMPAIRED?NO READINESS TO LEARN?YES LEARNING PREFERENCES?NO LEARNING CAPABILITIES PRESENT?YES EMOTIONAL BARRIERS?NO SPECIAL DEVICES?YES :CANOliver WALKER MEDICAL SURGICAL TECH NEEDED?NO PAIN CLINIC PFS, CLERGY, PUBLIC HEALTH REFERRALS PFS REFERRAL NEEDED?NO CLERGY REFERRAL NEEDED?NO PUBLIC HEALTH REFERRAL NEEDED?NO WAS THE PROVIDER NOTIFIED OF ANY PERTINENT INFO?NO HAS THE PATIENT BEEN EDUCATED REGARDING HIS/HER PLAN OF CARE?YES HAS THE PATIENT BEEN EDUCATED REGARDING PAIN, THE RISK FOR PAIN, THE IMPORTANCE OF EFFECTIVE PAIN MANAGEMENT, AND THE PAIN ASSESSMENT PROCESS?YES PATIENT: ____. ADVANCE DIRECTIVES HEALTH CARE PROXY?YES NAME OF HCP CESILIA COLLINS CONTACT # FOR HCP [phone] DO YOU HAVE A COPY WITH YOU?NO DO YOU HAVE A DNR?NO WOULD YOU LIKE MORE INFORMATION?NO LIVING WILL?NO WOULD YOU LIKE MORE INFORMATION?NO POWER OF PUBLIC RELATIONS PLAYER?NO WOULD YOU LIKE MORE INFORMATION?NO REVIEW OF SYSTEMS REVIEWED BY: PROVIDER: . CONSTITUTIONAL: ANY CHANGE IN YOUR MEDICAL CONDITION? NO . CHILLS NO . FEVER NO . INFECTION: DO YOU HAVE NEW INFECTIONS? NO . DO YOU HAVE HISTORY OF MRSA? NO . MUSCULOSKELETAL: ANY NEW PATTERNS OF PAIN OR NUMBNESS? NO . GASTROENTEROLOGY: ANY NEW CHANGE IN BOWEL CONTROL? NO . GENITOURINARY: ANY NEW CHANGE IN BLADDER CONTROL? NO . IS THERE A CHANCE YOU COULD BE ? NO . HEMATOLOGY/LYMPH: DO YOU TAKE ANY BLOOD THINNERS? (FOR EXAMPLE- COUMADIN, PLAVIX, AGGRENOX, PLATEL, PRADAXA, OR XARELTO) NO . WHEN WAS YOUR LAST DOSE? DATE: TIME: . NEUROLOGY: HAVE YOU FALLEN IN THE PAST 6 MONTHS? YES . ANY NEW EXTREMITY NUMBNESS OR WEAKNESS? NO . CARDIOLOGY: DO YOU HAVE A PACEMAKER OR DEFIBRILLATOR? NO . RESPIRATORY: HAVE YOU BEEN SICK IN THE PAST WEEK? NO . FEVER NO . FLU LIKE SYMPTOMS? NO . COUGH NO . INTEGUMENTARY: DO YOU HAVE ANY RASHES OR OPEN SORES? NO . ALLERGIC/IMMUNO: ARE YOU ALLERGIC TO SHELLFISH OR IV DYE? NO . ANY NEW ALLERGIES? NO . PSYCHIATRIC: DO YOU HAVE THOUGHTS OF HURTING YOURSELF OR SOMEONE ELSE? NO . ARE YOU ABUSED, NEGLECTED, OR IN AN UNSAFE ENVIRONMENT? NO . ENDOCRINOLOGY: ARE YOU DIABETIC? NO . OTHER: DO YOU NEED ANY PRESCRIPTIONS? NO . IF YES, PLEASE LIST: ____ . ANY NEW PROBLEMS WITH YOUR MEDICATIONS? NO . WHEN DID YOU LAST EAT? ____ . WHEN DID YOU LAST DRINK? ____ . WHAT DID YOU LAST DRINK? ____ . NAME OF PERSON DRIVING YOU HOME? ____ . DO YOU HAVE ANY OTHER QUESTIONS OR CONCERNS NO . VITAL SIGNS WT 131.0 LBS, HT 68 IN, BMI 19.92 INDEX, BP 136/78 MM HG, HR 92 /MIN, RR 16 /MIN, TEMP 97.6 F, OXYGEN SAT % 99%, SAFE IN ENV? (Y/N) YES, NA INITIALS TL [id number], REVIEWED BY: CHIQUITA. EXAMINATION GENERAL EXAMINATION: PSYCHALERT , ORIENTED X 3 . LUNGS:RHONCHI - CLEAR WITH COUGH. HEART:HEART RATE REGULAR. ABDOMEN:SOFT, BOWEL SOUNDS PRESENT. UROSTOMY FUNCTIONAL. MUSCULOSKELETAL:TENDER OVER ANCHORS ALONG SPINAL CANAL. TENDERNESS OVER PROX RIGHT GENERATOR AND INCREASED PAIN WITH MOVEMENT OF GENERATOR.. EXTREMITIES:NO EDEMA. ASSESSMENTS ABDOMINAL PAIN - R10.9 (PRIMARY) MYALGIA - M79.1 TREATMENT ABDOMINAL PAIN REFILL PERCOCET TABLET, 5-325 MG, 1 TABLET NEEDED, ORALLY, BID PRN MDD2, 30 DAY(S), 60, REFILLS 0 NOTES: KEEP UP THE GOOD WORK. WALK EVERY DAY WITH CANE. PROCEDURE CODES FA211 ESTABILISHED PATIENT [facility] CHARGE DISPOSITION & COMMUNICATION FOLLOW UP 2 MONTHS (REASON: ABD PAIN) ELECTRONICALLY SIGNED BY IDA PARRA ON 07/10/2017 AT 12:13 PM EST DISCLAIMER : THIS IS A VISIT SUMMARY EXTRACTED FROM THE [employer] CHART. IT IS NOT A COPY OF THE [facility] PROGRESS [facility]. MTDD
== END ==
LOC: M PAIN 08:45
PROVIDERS: ATTEND Nurse Practitioner Family
DX: G89.29 Other chronic pain (principal); R10.9 Unspecified abdominal pain; M79.1 Myalgia; F17.210 Nicotine dependence, cigarettes, uncomplicated; Z88.8 Allergy status to other drugs, medicaments and biological substances; Z79.891 Long term (current) use of opiate analgesic; Z79.899 Other long term (current) drug therapy

== ENCOUNTER → 2017-08-30 | Outpatient (CLI) | payer MEDICARE, OTHER | LOC: M PAIN 08:30 | DX: R10.9 Unspecified abdominal pain (principal); M79.1 Myalgia; F17.210 Nicotine dependence, cigarettes, uncomplicated; Z79.891 Long term (current) use of opiate analgesic; Z79.899 Other long term (current) drug therapy; Z88.8 Allergy status to other drugs, medicaments and biological substances | CPT/HCPCS: G0463 ==

== ENCOUNTER → 2017-10-28 | Outpatient (CLI) | payer MEDICARE, OTHER | LOC: M PAIN 08:30 | DX: R10.9 Unspecified abdominal pain (principal); M79.1 Myalgia; F17.210 Nicotine dependence, cigarettes, uncomplicated; Z79.891 Long term (current) use of opiate analgesic; Z79.899 Other long term (current) drug therapy; Z88.8 Allergy status to other drugs, medicaments and biological substances; Z96.9 Presence of functional implant, unspecified | CPT/HCPCS: G0463 ==

== ENCOUNTER → 2017-12-28 | Outpatient (CLI) | payer MEDICARE, OTHER | LOC: M PAIN 08:45 | DX: R10.9 Unspecified abdominal pain (principal); M79.1 Myalgia; N13.30 Unspecified hydronephrosis; K31.84 Gastroparesis; F17.210 Nicotine dependence, cigarettes, uncomplicated; Z79.891 Long term (current) use of opiate analgesic; Z79.899 Other long term (current) drug therapy; Z88.8 Allergy status to other drugs, medicaments and biological substances | CPT/HCPCS: G0463 ==

== ENCOUNTER → 2018-03-30 | Outpatient (CLI) | payer MEDICARE, OTHER | LOC: M PAIN 09:15 | DX: R10.9 Unspecified abdominal pain (principal); M79.1 Myalgia; F17.210 Nicotine dependence, cigarettes, uncomplicated; Z79.899 Other long term (current) drug therapy; Z88.8 Allergy status to other drugs, medicaments and biological substances; Z87.19 Personal history of other diseases of the digestive system | CPT/HCPCS: G0463 ==

== ENCOUNTER → 2018-07-22 | Outpatient (CLI) | payer MEDICARE, OTHER ==
[~2018-07-22] MED LIST changes: +CARI1TAB7 PO; -CARI350T PO; -OXCA300T PO; +OXCA300T14 PO
--- NOTE | 2018-08-15 00:18 | ECWPNPC ---
PATIENT NAME: HEENA KO JR : 1985 GENDER: MALE VISIT DATE: 07/22/2018 DISCHARGE DATE: 07/22/18919 VISIT LOCKED DATE TIME: PHYSICIAN: URBAN FRIAS RESOURCE: URBAN FRIAS REASON FOR APPOINTMENT 1. ABD PAIN HISTORY OF PRESENT ILLNESS DEPRESSION SCREENING: PHQ-2 IN LAST TWO WEEKS HAVE YOU BEEN BOTHERED BY LITTLE INTEREST OR PLEASURE IN DOING THINGSNO FEELING DOWN, DEPRESSED, OR HOPELESSNO HISTORY OF PRESENT ILLNESS: HERE FOR ROUTINE 3 MOS F/U OF CHRONIC ABDOMINAL AND LOW BACK PAIN.USING DCS AND MEDICATION WHICH CONTROLS PAIN WELL.CURRENTLY USING LIDODERM PATCH PRN TO RIGHT LOW BACK AND LIDOCAINE CREAM DAILY TO RIGHT LOW BACK.USING PERCOCET 5/325 Q6H PRN.DENIES SIDE EFFECTS WITH MEDICATION.RATING PAIN VAS 6/10. PAIN THE PATIENT DESCRIBES THE PAIN... FALL RISK SCREENING: SCREENING :NO FALLS IN THE PAST YEAR CURRENT MEDICATIONS TAKING STOOL SOFTENER 100 MG CAPSULE 1 CAPSULE NEEDED ORALLY BID TAKING VALIUM 5 MG TABLET 1 TABLET NEEDED ORALLY ONCE DAILY TAKING ABILIFY 20 MG TABLET 1 TABLET ORALLY ONCE A DAY TAKING LIDOCAINE 5 % PATCH 1 PATCH TO SKIN REMOVE AFTER 12 HOURS EXTERNALLY ONCE A DAY ON 12 HRS OFF 12 HOURS TAKING TRAZODONE HCL 50 MG TABLET 1-2 TABLET AT BEDTIME NEEDED ORALLY ONCE A DAY TAKING ZYRTEC ALLERGY 10 MG TABLET 1 TABLET ORALLY ONCE A DAY, NOTES: CURRENTLY NOT TAKING TAKING LIDOCAINE 5 % OINTMENT 1 APPLICATION TO AFFECTED AREA NEEDED EXTERNALLY THREE TIMES A DAY TO PAINFUL AREA LOW BACK TAKING PROZAC 20 MG CAPSULE 1 CAPSULE IN THE MORNING ORALLY ONCE A DAY, NOTES: TAKES WITH 10MG FOR TOTAL OF 30 MG TAKING PERCOCET 5-325 MG TABLET 1 TABLET NEEDED ORALLY Q 8 HRS PRN PAIN MDD=3 TAKING PROZAC 10 MG CAPSULE 1 CAPSULE ORALLY ONCE A DAY, NOTES: TAKES WITH 20MG FOR TOTAL OF 30MG NOT-TAKING HYDROXYZINE HCL 10 MG TABLET ORALLY DAILY NOT-TAKING OXCARBAZEPINE 300 MG TABLET 1 TAB(S) ORALLY BID NOT-TAKING VENLAFAXINE HCL 37.5 MG TABLET 2 TABLET WITH FOOD ORALLY DAILY NOT-TAKING INDOMETHACIN 50 MG CAPSULE 1 CAPSULE WITH FOOD OR MILK ORALLY TWICE A DAY NOT-TAKING NORTRIPTYLINE HCL 25 MG CAPSULE 1 CAPSULE ORALLY TWICE A DAY NOT-TAKING TIZANIDINE HCL 4 MG TABLET 1 TABLET NEEDED ORALLY THREE TIMES A DAY NOT-TAKING LIDOCAINE-PRILOCAINE 2.5-2.5 % CREAM DIRECTED EXTERNALLY APPLY TO PAIN AREAS OF LOW BACK NEAR INCISIONS Q 6 HRS PRN MEDICATION LIST REVIEWED AND RECONCILED WITH THE PATIENT PAST MEDICAL HISTORY PROSTATE ENLARGEMENT CHRONIC KIDNEY INFECTION GASTROPARESIS ANXIETY (SOCIAL) ALLERGIES STEROIDS - TPI: NAUSEA/VOMITING: SIDE EFFECTS SURGICAL HISTORY URETER SURGERY AGE 10 PROSTATE OPENING AGE 20 CYSTECTOMY AGE 29 DORSAL COLUMN STIMULATOR 07/2016 FAMILY HISTORY FATHER: ALIVE MOTHER: ALIVE SIBLINGS: ALIVE, YOUNGER BROTHER HAS GLYCOSOLATION 2 BROTHER(S) . SOCIAL HISTORY GENERAL: TOBACCO USE ARE YOU A:CURRENT SMOKER ARE YOU INTERESTED IN QUITTING?NOT READY TO QUIT STATES HE WON'T QUIT--HE HAS TOO MANY OTHER ISSUES COUNSELED THE PATIENT ON SMOKING EFFECTS, EDUCATION [id number]/22/2018 HOW MANY CIGARETTES A DAY DO YOU SMOKE?31 OR MORE HOW SOON AFTER YOU WAKE UP DO YOU SMOKE YOUR FIRST CIGARETTE?WITHIN 5 MIN HOW OFTEN DO YOU SMOKE CIGARETTES?EVERY DAY PATIENT COUNSELED ON THE DANGERS OF TOBACCO USE AND URGED TO QUIT:10/28/2017 HAS CUT DOWN ON HIS SMOKING TO 1 PACK PER DAY OF 05/31/17 ALCOHOL SCREENING DID YOU HAVE A DRINK CONTAINING ALCOHOL IN THE PAST YEAR?YES HOW OFTEN DID YOU HAVE A DRINK CONTAINING ALCOHOL IN THE PAST YEAR?MONTHLY OR LESS (1 POINT) HOW MANY DRINKS DID YOU HAVE ON A TYPICAL DAY WHEN YOU WERE DRINKING IN THE PAST YEAR?1 OR 2 (0 POINTS) HOW OFTEN DID YOU HAVE SIX OR MORE DRINKS ON ONE OCCASION IN THE PAST YEAR?NEVER (0 POINTS) POINTS1 INTERPRETATIONNEGATIVE RECREATIONAL DRUG USE DRUG USE?NO FAITH [id number] NONE LANGUAGE LANGUAGES SPOKEN:MACEDONIAN LEARNING BARRIERS / SPECIAL NEEDS BARRIERS TO LEARNING?NO HEARING IMPAIRED?NO VISION IMPAIRED?YES :CORRECTIVE LENSES COGNITIVELY IMPAIRED?NO READINESS TO LEARN?YES LEARNING PREFERENCES?NO LEARNING CAPABILITIES PRESENT?YES EMOTIONAL BARRIERS?NO SPECIAL DEVICES?YES :RAVIN GIMENEZ NEW [employer] MAKE READY MECHANIC NEEDED?NO PAIN CLINIC PFS, CLERGY, PUBLIC HEALTH REFERRALS PFS REFERRAL NEEDED?NO CLERGY REFERRAL NEEDED?NO PUBLIC HEALTH REFERRAL NEEDED?NO WAS THE PROVIDER NOTIFIED OF ANY PERTINENT INFO?NO HAS THE PATIENT BEEN EDUCATED REGARDING HIS/HER PLAN OF CARE?YES HAS THE PATIENT BEEN EDUCATED REGARDING PAIN, THE RISK FOR PAIN, THE IMPORTANCE OF EFFECTIVE PAIN MANAGEMENT, AND THE PAIN ASSESSMENT PROCESS?YES ADVANCE DIRECTIVE ADVANCE DIRECTIVE DISCUSSED WITH PATIENT:NO PT DOES NOT WANT INFO AT THIS TIME HOSPITALIZATION/MAJOR DIAGNOSTIC PROCEDURE SURG RELATED REVIEW OF SYSTEMS REVIEWED BY: PROVIDER: URBAN CEDILLO . CONSTITUTIONAL: ANY CHANGE IN YOUR MEDICAL CONDITION? NO . CHILLS NO . FEVER NO . INFECTION: DO YOU HAVE NEW INFECTIONS? NO . DO YOU HAVE HISTORY OF MRSA? NO . MUSCULOSKELETAL: ANY NEW PATTERNS OF PAIN OR NUMBNESS? NO . GASTROENTEROLOGY: ANY NEW CHANGE IN BOWEL CONTROL? NO . GENITOURINARY: ANY NEW CHANGE IN BLADDER CONTROL? NO . IS THERE A CHANCE YOU COULD BE ? NO . HEMATOLOGY/LYMPH: DO YOU TAKE ANY BLOOD THINNERS? (FOR EXAMPLE- COUMADIN, PLAVIX, AGGRENOX, PLATEL, PRADAXA, OR XARELTO) NO . WHEN WAS YOUR LAST DOSE? DATE: TIME: . NEUROLOGY: HAVE YOU FALLEN IN THE PAST 6 MONTHS? PT STATES HE FELL ABOUT A WEEK AGO DUE TO LEGS GIVING OUT. HAS SCAB TO LEFT KNEE. DENIES ANY OTHER INJURIES. . ANY NEW EXTREMITY NUMBNESS OR WEAKNESS? NO . CARDIOLOGY: DO YOU HAVE A PACEMAKER OR DEFIBRILLATOR? NO . RESPIRATORY: HAVE YOU BEEN SICK IN THE PAST WEEK? NO . FEVER NO . FLU LIKE SYMPTOMS? NO . COUGH NO . INTEGUMENTARY: DO YOU HAVE ANY RASHES OR OPEN SORES? NO . ALLERGIC/IMMUNO: ARE YOU ALLERGIC TO SHELLFISH OR IV DYE? NO . ANY NEW ALLERGIES? NO . PSYCHIATRIC: DO YOU HAVE THOUGHTS OF HURTING YOURSELF OR SOMEONE ELSE? NO . ARE YOU ABUSED, NEGLECTED, OR IN AN UNSAFE ENVIRONMENT? NO . ENDOCRINOLOGY: ARE YOU DIABETIC? NO . OTHER: DO YOU NEED ANY PRESCRIPTIONS? LIDOCAINE CREAM AND PATCHES . IF YES, PLEASE LIST: ____ . ANY NEW PROBLEMS WITH YOUR MEDICATIONS? NO . WHEN DID YOU LAST EAT? ____ . WHEN DID YOU LAST DRINK? ____ . WHAT DID YOU LAST DRINK? ____ . NAME OF PERSON DRIVING YOU HOME? ____ . DO YOU HAVE ANY OTHER QUESTIONS OR CONCERNS NO . VITAL SIGNS WT 156.2 LBS, HT 68 IN, BMI 23.75 INDEX, BP 126/76 MM HG, HR 93 /MIN, RR 16 /MIN, TEMP 99.5 F, OXYGEN SAT % 97%, NA INITIALS SC 08:50, REVIEWED BY: BV. EXAMINATION GENERAL EXAMINATION: GENERAL APPEARANCE:AWAKE,ALERT ,PLEAASANT . PSYCHAFFECT NORMAL . LUNGS:LUNG TURPIN ARE CLEAR TO AUSCULTATION BILATERALLY. GOOD MOVEMENT OF AIR . HEART:S1, S2 IN A REGULAR RATE AND RHYTHM. NO SIGNIFICANT MURMURS, RUBS OR GALLOPS NOTED . MUSCULOSKELETAL:MUSCLE STRENGTH TESTING 5/5 BILATERAL UPPER/LOWER EXTREMITIES. LUMBAR SACRAL SPINESENSITIVITY TO LIGHT TOUCH RIGHT BATTERY INCISION. ASSESSMENTS UNSPECIFIED ABDOMINAL PAIN - R10.9 (PRIMARY) CHRONIC PRESCRIPTION OPIATE USE - Z79.891 TREATMENT UNSPECIFIED ABDOMINAL PAIN REFILL LIDOCAINE PATCH, 5 %, 1 PATCH TO SKIN REMOVE AFTER 12 HOURS, EXTERNALLY, ONCE A DAY ON 12 HRS OFF 12 HOURS, 30 DAY(S), 30, REFILLS 5 REFILL LIDOCAINE OINTMENT, 5 %, 1 APPLICATION TO AFFECTED AREA NEEDED, EXTERNALLY, THREE TIMES A DAY TO PAINFUL AREA LOW BACK, 30 DAY(S), 2, REFILLS 5 REFILL PERCOCET TABLET, 5-325 MG, 1 TABLET NEEDED, ORALLY, Q 8 HRS PRN PAIN MDD=3, 30 DAY(S), 75, REFILLS 0 NOTES: ISTOP REGISTRY REVIEWED AND DEMONSTRATES COMPLLIANCE. (REF # [id number] ) BRINGS IN MEDICATIONS WHICH IS APPROPRIATE FOR WHAT WAS DISPENSED. RECENT URINE TOXICOLOGY REVIEWED. NO UNAUTHORIZED MEDICATIONS. NO ILLICIT SUBSTANCES AND PRESCRIBED MEDICATIONS WERE PRESENT. , RISKS AND BENEFITS OF NARCOTIC/OPIOD MEDICATIONS WERE REVIEWED WITH PATIENT - THIS INCLUDES BUT IS NOT LIMITED TO RISK OF DEPENDANCE/DEVELOPMENT OF ADDICTION, MOOD DISTURBANCE AND DEPRESSION, OSTEOPOROSIS, HORMONAL AND LABIDAL CHANGES, RESPIRATORY DEPRESSION AND . PATIENT IS ADVISED NOT TO DRIVE OR DRINK ALCOHOL WHILE ON THESE MEDICATIONS. PROCEDURE CODES FA211 ESTABILISHED PATIENT [facility] CHARGE DISPOSITION & COMMUNICATION FOLLOW UP 3 MONTHS ELECTRONICALLY SIGNED BY MAMADOU BARLOW ON 08/14/2018 AT 04:53 PM EST DISCLAIMER : THIS IS A VISIT SUMMARY EXTRACTED FROM THE [employer] CHART. IT IS NOT A COPY OF THE [email or web address] PROGRESS NOTE. KEMI
== END ==
LOC: M PAIN 08:30
PROVIDERS: ATTEND Nurse Practitioner Family
DX: R10.9 Unspecified abdominal pain (principal); G89.29 Other chronic pain; K31.84 Gastroparesis; F41.9 Anxiety disorder, unspecified; F17.210 Nicotine dependence, cigarettes, uncomplicated; Z79.891 Long term (current) use of opiate analgesic; Z79.899 Other long term (current) drug therapy; Z88.8 Allergy status to other drugs, medicaments and biological substances

== ENCOUNTER → 2018-10-19 | Outpatient (CLI) | payer MEDICARE, OTHER ==
--- NOTE | 2018-11-04 02:10 | ECWPNPC ---
PATIENT NAME: HEENA KO JR : 1985 GENDER: MALE VISIT DATE: 10/19/2018 DISCHARGE DATE: 10/19/18919 VISIT LOCKED DATE TIME: PHYSICIAN: URBAN FRIAS RESOURCE: URBAN FRIAS REASON FOR APPOINTMENT 1. ABD PAIN HISTORY OF PRESENT ILLNESS HISTORY OF PRESENT ILLNESS: HERE FOR ROUTINE 3 MOS F/U OF CHRONIC ABDOMINAL AND LOW BACK PAIN.USING DCS AND MEDICATION WHICH CONTROLS PAIN WELL.CURRENTLY USING LIDODERM PATCH PRN TO RIGHT LOW BACK AND LIDOCAINE CREAM DAILY TO RIGHT LOW BACK.USING PERCOCET 5/325 Q6H PRN.DENIES SIDE EFFECTS WITH MEDICATION.RATING PAIN VAS 5/10. PAIN THE PATIENT DESCRIBES THE PAIN... THE PATIENT DESCRIBES THE PAIN... FALL RISK SCREENING: SCREENING : NO FALLS IN THE PAST YEAR. CURRENT MEDICATIONS TAKING STOOL SOFTENER 100 MG CAPSULE 1 CAPSULE NEEDED ORALLY BID TAKING VALIUM 5 MG TABLET 1 TABLET NEEDED ORALLY ONCE DAILY TAKING ABILIFY 20 MG TABLET 1 TABLET ORALLY ONCE A DAY TAKING TRAZODONE HCL 50 MG TABLET 1-2 TABLET AT BEDTIME NEEDED ORALLY ONCE A DAY TAKING ZYRTEC ALLERGY 10 MG TABLET 1 TABLET ORALLY ONCE A DAY, NOTES: CURRENTLY NOT TAKING TAKING PROZAC 20 MG CAPSULE 1 CAPSULE IN THE MORNING ORALLY ONCE A DAY, NOTES: TAKES WITH 10MG FOR TOTAL OF 30 MG TAKING PROZAC 10 MG CAPSULE 1 CAPSULE ORALLY ONCE A DAY, NOTES: TAKES WITH 20MG FOR TOTAL OF 30MG TAKING LIDOCAINE 5 % PATCH 1 PATCH TO SKIN REMOVE AFTER 12 HOURS EXTERNALLY ONCE A DAY ON 12 HRS OFF 12 HOURS TAKING LIDOCAINE 5 % OINTMENT 1 APPLICATION TO AFFECTED AREA NEEDED EXTERNALLY THREE TIMES A DAY TO PAINFUL AREA LOW BACK TAKING PERCOCET 5-325 MG TABLET 1 TABLET NEEDED ORALLY Q 8 HRS PRN PAIN MDD=3 NOT-TAKING HYDROXYZINE HCL 10 MG TABLET ORALLY DAILY NOT-TAKING OXCARBAZEPINE 300 MG TABLET 1 TAB(S) ORALLY BID NOT-TAKING VENLAFAXINE HCL 37.5 MG TABLET 2 TABLET WITH FOOD ORALLY DAILY NOT-TAKING INDOMETHACIN 50 MG CAPSULE 1 CAPSULE WITH FOOD OR MILK ORALLY TWICE A DAY NOT-TAKING NORTRIPTYLINE HCL 25 MG CAPSULE 1 CAPSULE ORALLY TWICE A DAY NOT-TAKING TIZANIDINE HCL 4 MG TABLET 1 TABLET NEEDED ORALLY THREE TIMES A DAY NOT-TAKING LIDOCAINE-PRILOCAINE 2.5-2.5 % CREAM DIRECTED EXTERNALLY APPLY TO PAIN AREAS OF LOW BACK NEAR INCISIONS Q 6 HRS PRN MEDICATION LIST REVIEWED AND RECONCILED WITH THE PATIENT PAST MEDICAL HISTORY PROSTATE ENLARGEMENT CHRONIC KIDNEY INFECTION GASTROPARESIS ANXIETY (SOCIAL) ALLERGIES STEROIDS - TPI: NAUSEA/VOMITING - SIDE EFFECTS SURGICAL HISTORY URETER SURGERY AGE 10 PROSTATE OPENING AGE 20 CYSTECTOMY AGE 29 DORSAL COLUMN STIMULATOR 07/2016 FAMILY HISTORY FATHER: ALIVE MOTHER: ALIVE SIBLINGS: ALIVE, YOUNGER BROTHER HAS GLYCOSOLATION 2 BROTHER(S) . SOCIAL HISTORY GENERAL: TOBACCO USE ARE YOU A:CURRENT SMOKER ARE YOU INTERESTED IN QUITTING?NOT READY TO QUIT STATES HE WON'T QUIT_ _HE HAS TOO MANY OTHER ISSUES COUNSELED THE PATIENT ON SMOKING EFFECTS, EDUCATION [id number]/13/2019 HOW MANY CIGARETTES A DAY DO YOU SMOKE?31 OR MORE HOW SOON AFTER YOU WAKE UP DO YOU SMOKE YOUR FIRST CIGARETTE?WITHIN 5 MIN HOW OFTEN DO YOU SMOKE CIGARETTES?EVERY DAY PATIENT COUNSELED ON THE DANGERS OF TOBACCO USE AND URGED TO QUIT:10/28/2017 HAS CUT DOWN ON HIS SMOKING TO 1 PACK PER DAY OF 05/31/17 ALCOHOL SCREENING DID YOU HAVE A DRINK CONTAINING ALCOHOL IN THE PAST YEAR?YES POINTS1 INTERPRETATIONNEGATIVE HOW OFTEN DID YOU HAVE A DRINK CONTAINING ALCOHOL IN THE PAST YEAR?MONTHLY OR LESS (1 POINT) HOW MANY DRINKS DID YOU HAVE ON A TYPICAL DAY WHEN YOU WERE DRINKING IN THE PAST YEAR?1 OR 2 (0 POINTS) HOW OFTEN DID YOU HAVE SIX OR MORE DRINKS ON ONE OCCASION IN THE PAST YEAR?NEVER (0 POINTS) RECREATIONAL DRUG USE DRUG USE?NO RELIGIOUS [id number] NONE LANGUAGE LANGUAGES SPOKEN:TURKISH LEARNING BARRIERS / SPECIAL NEEDS BARRIERS TO LEARNING?NO HEARING IMPAIRED?NO VISION IMPAIRED?YES :CORRECTIVE LENSES COGNITIVELY IMPAIRED?NO READINESS TO LEARN?YES LEARNING PREFERENCES?NO LEARNING CAPABILITIES PRESENT?YES EMOTIONAL BARRIERS?NO SPECIAL DEVICES?YES :RAVIN GIMENEZ PARTS FACILITATOR NEEDED?NO PAIN CLINIC PFS, CLERGY, PUBLIC HEALTH REFERRALS PFS REFERRAL NEEDED?NO CLERGY REFERRAL NEEDED?NO PUBLIC HEALTH REFERRAL NEEDED?NO WAS THE PROVIDER NOTIFIED OF ANY PERTINENT INFO?NO HAS THE PATIENT BEEN EDUCATED REGARDING HIS/HER PLAN OF CARE?YES HAS THE PATIENT BEEN EDUCATED REGARDING PAIN, THE RISK FOR PAIN, THE IMPORTANCE OF EFFECTIVE PAIN MANAGEMENT, AND THE PAIN ASSESSMENT PROCESS?YES ADVANCE DIRECTIVE ADVANCE DIRECTIVE DISCUSSED WITH PATIENT:YES PT DOES NOT WANT INFO AT THIS TIME HOSPITALIZATION/MAJOR DIAGNOSTIC PROCEDURE SURG RELATED REVIEW OF SYSTEMS REVIEWED BY: PROVIDER: URBAN CEDILLO . CONSTITUTIONAL: ANY CHANGE IN YOUR MEDICAL CONDITION? NO . CHILLS NO . FEVER NO . INFECTION: DO YOU HAVE NEW INFECTIONS? NO . DO YOU HAVE HISTORY OF MRSA? NO . MUSCULOSKELETAL: ANY NEW PATTERNS OF PAIN OR NUMBNESS? NO . GASTROENTEROLOGY: ANY NEW CHANGE IN BOWEL CONTROL? NO . GENITOURINARY: ANY NEW CHANGE IN BLADDER CONTROL? NO . IS THERE A CHANCE YOU COULD BE ? NO . HEMATOLOGY/LYMPH: DO YOU TAKE ANY BLOOD THINNERS? (FOR EXAMPLE- COUMADIN, PLAVIX, AGGRENOX, PLATEL, PRADAXA, OR XARELTO) NO . WHEN WAS YOUR LAST DOSE? DATE: TIME: . NEUROLOGY: HAVE YOU FALLEN IN THE PAST 12 MONTHS? YES, PRIOR TO LAST VISIT . ANY NEW EXTREMITY NUMBNESS OR WEAKNESS? NO . CARDIOLOGY: DO YOU HAVE A PACEMAKER OR DEFIBRILLATOR? YES, DCS . RESPIRATORY: HAVE YOU BEEN SICK IN THE PAST WEEK? NO . FEVER NO . FLU LIKE SYMPTOMS? NO . COUGH NO . INTEGUMENTARY: DO YOU HAVE ANY RASHES OR OPEN SORES? NO . ALLERGIC/IMMUNO: ARE YOU ALLERGIC TO IV DYE? NO . ANY NEW ALLERGIES? NO . PSYCHIATRIC: DO YOU HAVE THOUGHTS OF HURTING YOURSELF OR SOMEONE ELSE? NO . ARE YOU ABUSED, NEGLECTED, OR IN AN UNSAFE ENVIRONMENT? NO . ENDOCRINOLOGY: ARE YOU DIABETIC? NO . OTHER: DO YOU NEED ANY PRESCRIPTIONS? NO . IF YES, PLEASE LIST: ____ . ANY NEW PROBLEMS WITH YOUR MEDICATIONS? NO . WHEN DID YOU LAST EAT? ____ . WHEN DID YOU LAST DRINK? ____ . WHAT DID YOU LAST DRINK? ____ . NAME OF PERSON DRIVING YOU HOME? ____ . DO YOU HAVE ANY OTHER QUESTIONS OR CONCERNS NO . VITAL SIGNS WT 172.4 LBS, HT 68 IN, BMI 26.21 INDEX, BP 122/74 MM HG, HR 88 /MIN, RR 16 /MIN, TEMP 97.8 F, OXYGEN SAT % 100%, NA INITIALS AW 0837, REVIEWED BY: EM. EXAMINATION GENERAL EXAMINATION: GENERAL APPEARANCE:AWAKE,ALERT ,PLEAASANT . PSYCHAFFECT NORMAL . LUNGS:LUNG TURPIN ARE CLEAR TO AUSCULTATION BILATERALLY. GOOD MOVEMENT OF AIR . HEART:S1, S2 IN A REGULAR RATE AND RHYTHM. NO SIGNIFICANT MURMURS, RUBS OR GALLOPS NOTED . ASSESSMENTS UNSPECIFIED ABDOMINAL PAIN - R10.9 (PRIMARY) CHRONICALLY ON OPIATE THERAPY - Z79.891 TREATMENT UNSPECIFIED ABDOMINAL PAIN REFILL PERCOCET TABLET, 5-325 MG, 1 TABLET NEEDED, ORALLY, Q 8 HRS PRN PAIN MDD=3, 30 DAY(S), 75, REFILLS 0 NOTES: ISTOP REGISTRY REVIEWED AND DEMONSTRATES COMPLLIANCE. (REF # ) BRINGS IN MEDICATIONS WHICH IS APPROPRIATE FOR WHAT WAS DISPENSED. RECENT URINE TOXICOLOGY REVIEWED. NO UNAUTHORIZED MEDICATIONS. NO ILLICIT SUBSTANCES AND PRESCRIBED MEDICATIONS WERE PRESENT. URINE TOX TODAY, [facility] NARCOTIC AGREEMENT WAS UPDATED REVIEWED AND SIGNED TODAY BY THE PATIENT. SEE ATTACHED DOCUMENT FOR FULL DETAILS; SPECIFIC ISSUES WERE REVIEWED: 1) KEEP PAIN MEDS IN THEIR ORIGINAL BOTTLES AND ANY WEEKLY PLANNERS ARE TO BE BROUGHT TO THE PAIN CENTER AT EVERY VISIT. 2) THE PATIENT IS NOT TO INCREASE DOSING OR TIMING OF THEIR PAIN MEDICATION WITHOUT SPECIFIC DIRECTION OF THEIR PAIN CENTERPROVIDER (NOT ER OR OTHER PROVIDERS). 3) ALL PAIN MEDS ARE TO BE KEPT SECURED, IN A LOCKED BOX. 4) NO PAIN MEDS ARE TO BE SHARED WITH ANY OTHER PERSON FOR ANY REASON. 5) NO PAIN MEDS MAY BE TAKEN FROM ANY FRIENDS OR RELATIVES FOR ANY REASON 6) NO MEDS OR SUBSTANCES WHICH ARE NOT LEGAL ARE TO BE USED- NO MARIJUANA, NO COCAINE, AMPHETAMINES, HEROIN, OR OTHERS ARE EVER TO BE USED. 7)URINE TESTING IS DONE TO ACCOUNT FOR MEDS AND SUBSTANCES BEING TAKEN AND WILL BE DONE RANDOMLY., RISKS AND BENEFITS OF NARCOTIC/OPIOD MEDICATIONS WERE REVIEWED WITH PATIENT - THIS INCLUDES BUT IS NOT LIMITED TO RISK OF DEPENDANCE/DEVELOPMENT OF ADDICTION, MOOD DISTURBANCE AND DEPRESSION, OSTEOPOROSIS, HORMONAL AND LABIDAL CHANGES, RESPIRATORY DEPRESSION AND . PATIENT IS ADVISED NOT TO DRIVE OR DRINK ALCOHOL WHILE ON THESE MEDICATIONS, REVIEWED WITH PATIENT THE POTENTIAL RISK OF INCREASED SEDATION, RESPIRATORY SUPPRESSION AND WITH THE COMBINATION OF BENZODIAZAPINE AND OPIOD MEDICATIONS. PATIENT STATES HE UNDERSTANDS THIS RISK AND WISHES TO CONTINUE WITH THERAPY. PROCEDURE CODES FA211 ESTABILISHED PATIENT [facility] CHARGE DISPOSITION & COMMUNICATION FOLLOW UP 3 MONTHS ELECTRONICALLY SIGNED BY MAMADOU BARLOW ON 11/03/2018 AT 12:56 PM EDT DISCLAIMER : THIS IS A VISIT SUMMARY EXTRACTED FROM THE [facility] CHART. IT IS NOT A COPY OF THE [employer] PROGRESS NOTE. KEMI
== END ==
LOC: M PAIN 08:45
PROVIDERS: ATTEND Nurse Practitioner Family
DX: R10.9 Unspecified abdominal pain (principal); N40.0 Benign prostatic hyperplasia without lower urinary tract symptoms; K31.84 Gastroparesis; F40.10 Social phobia, unspecified; F17.210 Nicotine dependence, cigarettes, uncomplicated; Z79.891 Long term (current) use of opiate analgesic; Z79.899 Other long term (current) drug therapy; Z88.8 Allergy status to other drugs, medicaments and biological substances

== ENCOUNTER → 2019-01-25 | Outpatient (CLI) | payer MEDICARE, OTHER ==
--- NOTE | 2019-02-14 02:43 | ECWPNPC ---
PATIENT NAME: HEENA KO JR : 1985 GENDER: MALE VISIT DATE: 01/25/2019 DISCHARGE DATE: 01/25/19944 VISIT LOCKED DATE TIME: PHYSICIAN: URBAN FRIAS RESOURCE: URBAN FRIAS DISCLAIMER : THIS IS A VISIT SUMMARY EXTRACTED FROM THE [facility] CH[facility]. IT IS NOT A COPY OF THE [facility] PROGRESS NOTE. KEMI
== END ==
LOC: M PAIN 08:30
PROVIDERS: ATTEND Nurse Practitioner Family
DX: R10.9 Unspecified abdominal pain (principal); N40.0 Benign prostatic hyperplasia without lower urinary tract symptoms; F41.9 Anxiety disorder, unspecified; K31.84 Gastroparesis; F17.210 Nicotine dependence, cigarettes, uncomplicated; Z79.899 Other long term (current) drug therapy; Z88.8 Allergy status to other drugs, medicaments and biological substances

== ENCOUNTER → 2019-04-26 | Outpatient (CLI) | payer MEDICARE, OTHER | LOC: M PAIN 09:45 | PROVIDERS: ATTEND Nurse Practitioner Family | DX: R10.9 Unspecified abdominal pain (principal); G89.29 Other chronic pain; Z86.59 Personal history of other mental and behavioral disorders; F17.210 Nicotine dependence, cigarettes, uncomplicated; Z88.8 Allergy status to other drugs, medicaments and biological substances; Z79.899 Other long term (current) drug therapy ==

== ENCOUNTER → 2023-12-28 | Outpatient (CLI) | payer MEDICARE, OTHER | LOC: M OUTALCOH 08:50 | PROVIDERS: ATTEND Psychiatry & Neurology Psychiatry | DX: F14.20 Cocaine dependence, uncomplicated (principal); F11.20 Opioid dependence, uncomplicated; F17.200 Nicotine dependence, unspecified, uncomplicated ==

== ENCOUNTER 2024-01-05 10:30 | Outpatient (RCR) | payer MEDICARE, OTHER | END 2024-01-07 | LOC: M OUTALCOH 10:30 | PROVIDERS: ATTEND Psychiatry & Neurology Psychiatry | DX: F14.20 Cocaine dependence, uncomplicated (principal); F11.20 Opioid dependence, uncomplicated; F17.200 Nicotine dependence, unspecified, uncomplicated ==

== ENCOUNTER → 2024-05-12 | Outpatient (CLI) | payer MEDICARE, OTHER | LOC: M RAD 10:54 | PROVIDERS: ATTEND Urology | DX: Z98.890 Other specified postprocedural states (principal) ==